=== PATIENT | male | born 1960 | race American Indian/Alaskan Native ===

== ENCOUNTER 2018-06-26 21:31 | Emergency (ER) | payer MEDICARE ==
[2018-06-26 22:29] LABS: Hemoglobin 11.1 gm/dl (11.8-15.2); Mean Corpuscular HGB Conc 33 % (32-34); Mean Corpuscular Hemoglobin 31 pg (28-32); Mean Corpuscular Volume 94 fl (84-94); Platelet Count 226 K/mm3 (140-440); Red Blood Count 3.63 M/mm3 (3.65-5.03); Red Cell Distribution Width 15.6 % (13.2-15.2)
[2018-06-26 22:42] LABS: BUN/Creatinine Ratio 16; Blood Urea Nitrogen 18 mg/dL (9-20); Calcium 8.5 mg/dL (8.4-10.2); Hemolysis Index 2
[2018-06-27 03:04] VITALS: BP 130/64
[2018-06-27] MEDS ORDERED: KEFLEX PO ONE ×2 (04:03→05:58)
--- NOTE | 2018-06-27 05:57 | Emergency Department Report ---
- General Chief Complaint: Wound/Laceration Stated Complaint: LT FOOT PAIN Time Seen by Provider: 06/27/18 04:03 Source: EMS Mode of arrival: Wheelchair Limitations: No Limitations - History of Present Illness Initial Comments: Pt has had nontraumatic left foot pain for the past couple of days. He has a wound on his foot that he would like to get checked out. - Related Data Previous Rx's Medication Instructions Recorded Last Taken Type cephALEXin [Keflex] 500 mg PO Q8HR #15 cap 06/27/18 Unknown Rx Allergies Allergy/AdvReac Type Severity Reaction Status Date / Time No Known Allergies Allergy Unverified 12/21/16 08:04 ED Review of Systems ROS: Stated complaint: LT FOOT PAIN Other details as noted in HPI Comment: All other systems reviewed and negative Musculoskeletal: arthralgia, myalgia ED Past Medical Hx - Past Medical History Hx Psychiatric Treatment: Yes (SCHIZO-EFFECTIVE) - Surgical History Past Surgical History?: No - Social History Smoking Status: Current Every Day Smoker Substance Use Type: None - Medications Home Medications: Home Medications Medication Instructions Recorded Confirmed Last Taken Type cephALEXin [Keflex] 500 mg PO Q8HR #15 cap 06/27/18 Unknown Rx ED Physical Exam - General Limitations: No Limitations General appearance: alert, in no apparent distress - Head Head exam: Present: atraumatic, normocephalic - Eye Eye exam: Present: normal appearance - ENT ENT exam: Present: mucous membranes moist - Neck Neck exam: Present: normal inspection - Respiratory Respiratory exam: Present: normal lung sounds bilaterally. Absent: respiratory distress - Cardiovascular Cardiovascular Exam: Present: regular rate, normal rhythm. Absent: systolic murmur, diastolic murmur, rubs, gallop - GI/Abdominal GI/Abdominal exam: Present: soft, normal bowel sounds. Absent: distended, tenderness - Rectal Rectal exam: Present: deferred - Extremities Exam Extremities exam: Present: normal inspection - Expanded Lower Extremity Exam Left Foot/Toe exam: Present: tenderness (4 cm linear superficial avulsion to the inner posterior portion of left foot. Mild erythema/swelling appreciated. Granulation tissue appreciated. ) Neuro vascular tendon exam: Present: no vascular compromise - Back Exam Back exam: Present: normal inspection - Neurological Exam Neurological exam: Present: alert, oriented X3 - Psychiatric Psychiatric exam: Present: normal affect, normal mood - Skin Skin exam: Present: warm, dry, intact, normal color. Absent: rash ED Course Vital Signs 06/26/18 06/27/18 22:09 03:03 Temperature 98.9 F Pulse Rate 65 64 Respiratory 18 16 Rate Blood Pressure 111/75 Blood Pressure 130/64 [Left] O2 Sat by Pulse 98 97 Oximetry ED Medical Decision Making - Lab Data Result diagrams: 06/26/18 22:16 06/26/18 22:16 - Medical Decision Making 57-year-old male that presents to the ER with left foot pain. Vital signs are stable. Patient is well-appearing. He has not medical foot pain. Wound appears to be unremarkable. Granulation tissue is seen. I will prescribe antibiotics as a precaution. No indication for imaging at this point in time. Patient ambulated in the ER without any difficulty. He is cleared for discharge. Has been given instructions on wound care. - Differential Diagnosis cellulitis, abscess, osteomyelitis, laceration Critical care attestation.: If time is entered above; I have spent that time in minutes in the direct care of this critically ill patient, excluding procedure time. ED Disposition Clinical Impression: Visit for wound check, Cellulitis Disposition: DC-01 TO HOME OR SELFCARE Is pt being admited?: No Does the pt Need Aspirin: No Condition: Stable Instructions: Cellulitis (ED), Acute Wound Care (ED) Prescriptions: cephALEXin [Keflex] 500 mg PO Q8HR #15 cap Referrals: PRIMARY CARE, [Primary Care Provider] - 3-5 Days [facility] [Outside] - 3-5 Days
== END 2018-06-27 06:14 | disposition home or self-care (01) ==
LOC: ED 21:31
DX: L03.116 Cellulitis of left lower limb (principal); F17.200 Nicotine dependence, unspecified, uncomplicated; F25.9 Schizoaffective disorder, unspecified
CPT/HCPCS: 36415; 80048; 85027; 99283

== ENCOUNTER 2018-07-04 09:35 | Emergency (ER) | payer MEDICARE ==
[2018-07-04 09:57] VITALS: BP 126/81
--- NOTE | 2018-07-04 12:21 | Emergency Department Report ---
ED Male HPI - General Chief complaint: Urogenital-Male Stated complaint: CANT URINATE Time Seen by Provider: 07/04/18 12:04 Source: patient Mode of arrival: Ambulatory Limitations: No Limitations - History of Present Illness Initial comments: 58-year-old male with a past medical history of schizoaffective disorder presents to the hospital complaining of chronic difficulty urinating for several years that has been progressively worsening for several months. Patient also complains of infrequent hard stools. Dysuria reported. He denies scrotal edema, nausea, vomiting, or fever. Pt was here 06/27 with complaint of nontraumatic left foot pain - Related Data Previous Rx's Medication Instructions Recorded Last Taken Type cephALEXin [Keflex] 500 mg PO Q8HR #15 cap 06/27/18 Unknown Rx Docusate Sodium [Colace] 100 mg PO BID PRN #20 capsule 07/04/18 Unknown Rx Polyethylene Glycol 3350 [Miralax 17 gm PO QDAY PRN #7 packet 07/04/18 Unknown Rx 3350] Tamsulosin [Flomax] 0.4 mg PO QDAY #30 cap 07/04/18 Unknown Rx Allergies Allergy/AdvReac Type Severity Reaction Status Date / Time No Known Allergies Allergy Verified 07/04/18 09:54 ED Review of Systems ROS: Stated complaint: CANT URINATE Other details as noted in HPI Comment: All other systems reviewed and negative ED Past Medical Hx - Past Medical History Hx Psychiatric Treatment: Yes (SCHIZO-EFFECTIVE) - Surgical History Past Surgical History?: No - Social History Smoking Status: Current Every Day Smoker Substance Use Type: None - Medications Home Medications: Home Medications Medication Instructions Recorded Confirmed Last Taken Type cephALEXin [Keflex] 500 mg PO Q8HR #15 cap 06/27/18 Unknown Rx Docusate Sodium [Colace] 100 mg PO BID PRN #20 capsule 07/04/18 Unknown Rx Polyethylene Glycol 3350 [Miralax 17 gm PO QDAY PRN #7 packet 07/04/18 Unknown Rx 3350] Tamsulosin [Flomax] 0.4 mg PO QDAY #30 cap 07/04/18 Unknown Rx ED Physical Exam - General Limitations: No Limitations - Other Other exam information: General: No limitations, patient is alert in no acute distress Head exam: Atraumatic, normocephalic Eyes exam: Normal appearance ENT: Moist mucous membrane, normal oropharynx Neck exam: Normal inspection, full range of motion, no meningismus nontender Respiratory exam: Clear to auscultation bilateral, no wheezes, rales, crackles Cardiovascular: Normal rate and rhythm, normal heart sounds Abdomen: Soft, nondistended, and nontender, with normal bowel sounds, no rebound, or guarding Extremity: Full range of motion normal inspection no deformity Back: Normal Inspection, full range of motion, no tenderness Neurologic: Alert, oriented x3, cranial nerves intact, no motor or sensory deficit Psychiatric: normal affect, normal mood Skin: Warm, dry, intact ED Course Vital Signs 07/04/18 09:54 Temperature 97.4 F L Pulse Rate 70 Respiratory 16 Rate Blood Pressure 126/81 O2 Sat by Pulse 100 Oximetry ED Medical Decision Making - Lab Data Lab Results 07/04/18 Range/Units 12:31 Urine Color Yellow (Yellow) Urine Turbidity Clear (Clear) Urine pH 6.0 (5.0-7.0) Ur Specific [place] 1.014 (1.003-1.030) Urine Protein <15 mg/dl (Negative) mg/dL Urine Glucose (UA) Neg (Negative) mg/dL Urine Ketones Neg (Negative) mg/dL Urine Blood Sm (Negative) Urine Nitrite Neg (Negative) Urine Bilirubin Neg (Negative) Urine Urobilinogen < 2.0 (<2.0) mg/dL Ur Leukocyte Esterase Neg (Negative) Urine WBC (Auto) 1.0 (0.0-6.0) /HPF Urine RBC (Auto) 4.0 (0.0-6.0) /HPF U Epithel Cells (Auto) < 1.0 (0-13.0) /HPF Urine Bacteria (Auto) Not Reportable Urine Mucus Few /HPF - Medical Decision Making Patient be empirically treated with Flomax for presumed BPH given progressively worsening difficulty urinating or straining Medications for constipation will be prescribed I stressed the importance of follow-up for further workup and evaluation ua does not review infection Recently as 06/26/2018 reviewed and revealed normal kidney function - Differential Diagnosis BPH, prostate cancer, constipation, UTI Critical Care Time: No Critical care attestation.: If time is entered above; I have spent that time in minutes in the direct care of this critically ill patient, excluding procedure time. ED Disposition Clinical Impression: Difficulty urinating, Constipation Disposition: DC-01 TO HOME OR SELFCARE Is pt being admited?: No Does the pt Need Aspirin: No Condition: Stable Instructions: Urinary Retention in Men (ED), Constipation (ED) Additional Instructions: Take the medication as prescribed. Follow up with your doctor. Return if symptoms worsen as indicated by your discharge instructions. It is very important that you follow up for evaluation of your prostate given your difficulty urinating. Prescriptions: Docusate Sodium [Colace] 100 mg PO BID PRN #20 capsule PRN Reason: Constipation Polyethylene Glycol 3350 [Miralax 3350] 17 gm PO QDAY PRN #7 packet PRN Reason: Constipation Tamsulosin [Flomax] 0.4 mg PO QDAY #30 cap Referrals: REUBEN MCCOLLUM MD [Staff Physician] - 3-5 Days (urology ) JAVI WADE MD [Staff Physician] - 3-5 Days (Primary care doctor) [facility] [Provider Group] - 3-5 Days (Primary care clinic) Time of Disposition: 13:23
[2018-07-04 12:45] LABS: Bilirubin,Urine NEG (Negative); Blood,Urine SM (Negative); Color,Urine Yellow (Yellow); Mucus,Urine FEW /HPF; Protein,Urine <15 mg/dL mg/dL (Negative); Urobilinogen,Urine < 2.0 mg/dL (<2.0)
== END 2018-07-04 13:51 | disposition home or self-care (01) ==
LOC: ED 09:35
DX: K59.00 Constipation, unspecified (principal); R39.198 Other difficulties with micturition; R30.0 Dysuria; M79.672 Pain in left foot; F17.200 Nicotine dependence, unspecified, uncomplicated
CPT/HCPCS: 81001; 99283

== ENCOUNTER 2018-07-08 09:30 | Emergency (ER) | payer MEDICARE ==
[2018-07-08] MEDS ORDERED: NACL 0.9% 1000 ML 1,000 ML IV ONE (10:28)
[2018-07-08 10:42] LABS: Hematocrit 36.6 % (35.5-45.6); Hemoglobin 12.2 gm/dl (11.8-15.2); Mean Corpuscular HGB Conc 33 % (32-34); Mean Corpuscular Hemoglobin 31 pg (28-32); Mean Corpuscular Volume 94 fl (84-94); Platelet Count 276 K/mm3 (140-440); Red Blood Count 3.89 M/mm3 (3.65-5.03); Red Cell Distribution Width 16.2 % (13.2-15.2)
--- NOTE | 2018-07-08 10:48 | Emergency Department Report ---
ED General Adult HPI - General Chief complaint: Abdominal Pain Stated complaint: GROWING PAIN Time Seen by Provider: 07/08/18 10:41 Source: patient Mode of arrival: Ambulatory Limitations: No Limitations - History of Present Illness Initial comments: Ramirez medrano is a 58-year-old male past medical history of BPH and difficulty urinating who presents with lower abdominal pain. He states pain is about a 5 out of 10 and it's an achy type of pain in lower abdomen. Patient denies any nausea or vomiting. He was seen here 4 days ago for the same issue. He recently moved to a personal assisted and does not have a primary care doctor. Patient keeps on requesting for pain pill. Patient was in no distress. Patient denies having any blood in his urine and states that he's been having hard stools but he has not filled any of his medications since his last visit. - Related Data Previous Rx's Medication Instructions Recorded Last Taken Type cephALEXin [Keflex] 500 mg PO Q8HR #15 cap 06/27/18 Unknown Rx Docusate Sodium [Colace] 100 mg PO BID PRN #20 capsule 07/04/18 Unknown Rx Polyethylene Glycol 3350 [Miralax 17 gm PO QDAY PRN #7 packet 07/04/18 Unknown Rx 3350] Tamsulosin [Flomax] 0.4 mg PO QDAY #30 cap 07/04/18 Unknown Rx Tamsulosin HCl [Flomax] 0.4 mg PO DAILY #30 cap.er.24h 07/08/18 Unknown Rx Allergies Allergy/AdvReac Type Severity Reaction Status Date / Time No Known Allergies Allergy Verified 07/04/18 09:54 ED Review of Systems ROS: Stated complaint: GROWING PAIN Other details as noted in HPI Constitutional: denies: chills, fever Eyes: denies: eye pain, eye discharge, vision change ENT: denies: ear pain, throat pain Respiratory: denies: cough, shortness of breath, wheezing Cardiovascular: denies: chest pain, palpitations Endocrine: no symptoms reported Gastrointestinal: abdominal pain. denies: nausea, diarrhea Genitourinary: denies: urgency, dysuria Musculoskeletal: denies: back pain, joint swelling, arthralgia Skin: denies: rash, lesions Neurological: denies: headache, weakness, paresthesias Psychiatric: denies: anxiety, depression Hematological/Lymphatic: denies: easy bleeding, easy bruising ED Past Medical Hx - Past Medical History Previous Medical History?: Yes Hx Psychiatric Treatment: Yes (SCHIZO-EFFECTIVE) - Surgical History Past Surgical History?: No - Social History Smoking Status: Current Every Day Smoker Substance Use Type: None - Medications Home Medications: Home Medications Medication Instructions Recorded Confirmed Last Taken Type cephALEXin [Keflex] 500 mg PO Q8HR #15 cap 06/27/18 Unknown Rx Docusate Sodium [Colace] 100 mg PO BID PRN #20 capsule 07/04/18 Unknown Rx Polyethylene Glycol 3350 [Miralax 17 gm PO QDAY PRN #7 packet 07/04/18 Unknown Rx 3350] Tamsulosin [Flomax] 0.4 mg PO QDAY #30 cap 07/04/18 Unknown Rx Tamsulosin HCl [Flomax] 0.4 mg PO DAILY #30 cap.er.24h 07/08/18 Unknown Rx ED Physical Exam - General Limitations: No Limitations General appearance: alert, in no apparent distress - Head Head exam: Present: atraumatic, normocephalic - Eye Eye exam: Present: normal appearance - ENT ENT exam: Present: mucous membranes moist - Neck Neck exam: Present: normal inspection - Respiratory Respiratory exam: Present: normal lung sounds bilaterally. Absent: respiratory distress - Cardiovascular Cardiovascular Exam: Present: regular rate, normal rhythm. Absent: systolic murmur, diastolic murmur, rubs, gallop - GI/Abdominal GI/Abdominal exam: Present: soft, normal bowel sounds - Rectal Rectal exam: Present: deferred - Extremities Exam Extremities exam: Present: normal inspection - Back Exam Back exam: Present: normal inspection - Neurological Exam Neurological exam: Present: alert, oriented X3 - Psychiatric Psychiatric exam: Present: normal affect, normal mood - Skin Skin exam: Present: warm, dry, intact, normal color. Absent: rash ED Course Vital Signs 07/08/18 10:24 Temperature 97.7 F Pulse Rate 65 Respiratory 22 Rate Blood Pressure 148/86 O2 Sat by Pulse 100 Oximetry ED Medical Decision Making - Lab Data Result diagrams: 07/08/18 10:31 07/08/18 10:31 Lab Results 07/08/18 07/08/18 07/08/18 Range/Units 10:31 10:31 Unknown WBC 6.0 (4.5-11.0) K/mm3 RBC 3.89 (3.65-5.03) M/mm3 Hgb 12.2 (11.8-15.2) gm/dl Hct 36.6 (35.5-45.6) % MCV 94 (84-94) fl MCH 31 (28-32) pg MCHC 33 (32-34) % RDW 16.2 H (13.2-15.2) % Plt Count 276 (140-440) K/mm3 Sodium 141 (137-145) mmol/L Potassium 4.3 (3.6-5.0) mmol/L Chloride 105.0 (98-107) mmol/L Carbon Dioxide 24 (22-30) mmol/L Anion Gap 16 mmol/L BUN 11 (9-20) mg/dL Creatinine 0.9 (0.8-1.5) mg/dL Estimated GFR > 60 ml/min BUN/Creatinine Ratio 12 % Glucose 98 (75-100) mg/dL Calcium 9.4 (8.4-10.2) mg/dL Total Bilirubin 1.10 (0.1-1.2) mg/dL AST 15 (5-40) units/L ALT 8 (7-56) units/L Alkaline Phosphatase 59 (35-129) units/L Total Protein 7.3 (6.3-8.2) g/dL Albumin 4.2 (3.9-5) g/dL Albumin/Globulin Ratio 1.4 % Urine Color Yellow (Yellow) Urine Turbidity Clear (Clear) Urine pH 6.0 (5.0-7.0) Ur Specific [place] 1.015 (1.003-1.030) Urine Protein <15 mg/dl (Negative) mg/dL Urine Glucose (UA) Neg (Negative) mg/dL Urine Ketones Neg (Negative) mg/dL Urine Blood Sm (Negative) Urine Nitrite Neg (Negative) Urine Bilirubin Neg (Negative) Urine Urobilinogen < 2.0 (<2.0) mg/dL Ur Leukocyte Esterase Neg (Negative) Urine WBC (Auto) 2.0 (0.0-6.0) /HPF Urine RBC (Auto) 2.0 (0.0-6.0) /HPF U Epithel Cells (Auto) < 1.0 (0-13.0) /HPF Urine Bacteria (Auto) 1+ (Negative) /HPF Urine Mucus Few /HPF - Medical Decision Making Cdx: UTI ddx: BPH, Constipation I will get cbc, ua, flomax and I will re-evaluate the patient. Patient's blood work is unremarkable. Patient states urine shows no signs of urinary tract infection. He is refusing Ball leg bag. I will send patient home with Flomax and follow up with Dr. Almanzar urologist. Discussed plan patient, patient agrees a plan additional verbal discharge instructions were given. Critical care attestation.: If time is entered above; I have spent that time in minutes in the direct care of this critically ill patient, excluding procedure time. ED Disposition Clinical Impression: Lower abdominal pain BPH (benign prostatic hyperplasia) Qualifiers: Lower urinary tract symptom presence: symptoms present Lower urinary tract symptom detail: weak urinary stream Qualified Code(s): N40.1 - Benign prostatic hyperplasia with lower urinary tract symptoms; R39.12 - Poor urinary stream Disposition: DC- TO HOME OR SELFCARE Is pt being admited?: No Does the pt Need Aspirin: No Condition: Stable Instructions: Benign Prostatic Hypertrophy (ED) Prescriptions: Tamsulosin HCl [Flomax] 0.4 mg PO DAILY #30 cap.er.24h Referrals: PRIMARY CAREMD [Primary Care Provider] - 3-5 Days OZZIE ALMANZAR MD [Referring] - 3-5 Days
[2018-07-08 11:03] LABS: Alanine Aminotransferase 8 units/L (7-56); Albumin 4.2 g/dL (3.9-5); BUN/Creatinine Ratio 12; Blood Urea Nitrogen 11 mg/dL (9-20); Calcium 9.4 mg/dL (8.4-10.2); Hemolysis Index 13
[2018-07-08] MEDS ORDERED: PERCOCET 5/325 PO ONE (11:04)
[2018-07-08] MEDS ORDERED: COLACE PO ONE (11:05)
[2018-07-08 11:34] LABS: Bacteria,Urine 1+ /HPF (Negative); Bilirubin,Urine NEG (Negative); Blood,Urine SM (Negative); Color,Urine Yellow (Yellow); Mucus,Urine FEW /HPF; Protein,Urine <15 mg/dL mg/dL (Negative); Urobilinogen,Urine < 2.0 mg/dL (<2.0)
[2018-07-08] MEDS ORDERED: FLOMAX PO ONE (12:00)
[2018-07-08 12:20] VITALS: BP 146/96
[2018-07-08 13:26] LABS: Anisocytosis 2+; Basophils % (Manual) 0 % (0.0-1.8); Poikilocytosis 3+; Total Cells Counted 100
[2018-07-08 13:27] LABS: Ovalocytes 3+
[2018-07-08 13:28] LABS: Tear Drop Cells Few
[2018-07-08 13:31] LABS: Platelet Estimate Consistent w Auto
== END 2018-07-08 12:18 | disposition home or self-care (01) ==
LOC: ED 09:30
DX: N40.1 Benign prostatic hyperplasia with lower urinary tract symptoms (principal); R39.12 Poor urinary stream
CPT/HCPCS: 36415; 80053; 81001; 85007; 85025; 99283; J7030

== ENCOUNTER 2018-08-07 16:13 | Inpatient (IN) | payer MEDICARE ==
[2018-08-07] MEDS ORDERED: NACL 0.9% 1000 ML 1,000 ML IV ONE (18:25)
[2018-08-07 19:11] LABS: Hematocrit 38.5 % (35.5-45.6); Hemoglobin 13.2 gm/dl (11.8-15.2); Mean Corpuscular HGB Conc 34 % (32-34); Mean Corpuscular Hemoglobin 31 pg (28-32); Mean Corpuscular Volume 89 fl (84-94); Red Blood Count 4.34 M/mm3 (3.65-5.03); Red Cell Distribution Width 15.7 % (13.2-15.2)
[2018-08-07 19:23] LABS: Platelet Count 293 K/mm3 (140-440)
[2018-08-07 19:26] LABS: Albumin 5.4 g/dL (3.9-5); Calcium 10.9 mg/dL (8.4-10.2)
[2018-08-07 20:23] LABS: Band Neutrophils # (Manual) 0.1 K/mm3; Basophils % (Manual) 0 % (0.0-1.8); Eosinophils % (Manual) 0 % (0.0-4.3); Myelocytes # (Manual) 0.1 K/mm3; Total Cells Counted 100
[2018-08-07 20:38] LABS: Hypersegmented Neutrophils Few; Platelet Estimate Consistent w Auto
[2018-08-07 20:39] LABS: Anisocytosis 2+; Ovalocytes 2+; Poikilocytosis 3+
[2018-08-07] MEDS ORDERED: HumuLIN R IV ONE (21:04)
[2018-08-07] MEDS ORDERED: D50W (25GM) Syringe IV ONE (21:04)
[2018-08-07] MEDS ORDERED: KIONEX PO ONE (21:04)
[2018-08-07] MEDS ORDERED: PROVENTIL IH ONE (21:05)
--- NOTE | 2018-08-07 21:20 | Emergency Department Report ---
HPI - General Chief Complaint: Abdominal Pain Time Seen by Provider: 08/07/18 20:47 - HPI HPI: 58-year-old male presents to the emergency department with complaint of some chronic lower abdominal pain as well as some intermittent nausea, vomiting and diarrhea. Patient complains of difficulty with urination. The patient has a history of BPH. He was seen here at the end of last month for similar symptoms and was placed on some Flomax. The patient wears a diaper. He is making urine but sometimes he is incontinent at other times he is able to get to a restroom. He does not have a primary care physician. The patient says that he used to be homeless but is currently living in a personal half-way. No recent travel or sick contacts at home. He denies any fever, chest pain, shortness of breath. ED Past Medical Hx - Past Medical History Hx Psychiatric Treatment: Yes (SCHIZO-EFFECTIVE) Additional medical history: BPH - Surgical History Past Surgical History?: No - Social History Smoking Status: Current Every Day Smoker Substance Use Type: None - Medications Home Medications: Home Medications Medication Instructions Recorded Confirmed Last Taken Type cephALEXin [Keflex] 500 mg PO Q8HR #15 cap 06/27/18 Unknown Rx Docusate Sodium [Colace] 100 mg PO BID PRN #20 capsule 07/04/18 Unknown Rx Polyethylene Glycol 3350 [Miralax 17 gm PO QDAY PRN #7 packet 07/04/18 Unknown Rx 3350] Tamsulosin [Flomax] 0.4 mg PO QDAY #30 cap 07/04/18 Unknown Rx Tamsulosin HCl [Flomax] 0.4 mg PO DAILY #30 cap.er.24h 07/08/18 Unknown Rx ED Review of Systems ROS: Stated complaint: STOMACH PAIN Other details as noted in HPI Comment: All other systems reviewed and negative Constitutional: denies: chills, fever Eyes: denies: eye pain, eye discharge, vision change ENT: denies: ear pain, throat pain Respiratory: denies: cough, shortness of breath, wheezing Cardiovascular: denies: chest pain, palpitations Gastrointestinal: abdominal pain, nausea, vomiting Genitourinary: other (difficulty urinating). denies: discharge Musculoskeletal: denies: joint swelling, arthralgia Skin: denies: rash, lesions Neurological: denies: headache, weakness, paresthesias Physical Exam - Physical Exam Vital Signs: Vital Signs 08/07/18 18:20 Temperature 98.0 F Pulse Rate 59 L Respiratory 20 Rate Blood Pressure 138/102 O2 Sat by Pulse 98 Oximetry Physical Exam: GENERAL: The patient is well-developed well-nourished. HENT: Normocephalic. Atraumatic. Patient has moist mucous membranes. EYES: Extraocular motions are intact. Pupils equal reactive to light bilaterally. NECK: Supple. Trachea is midline. CHEST/LUNGS: Clear to auscultation. There is no respiratory distress noted. HEART/CARDIOVASCULAR: Regular. There is mild tachycardia. There is no murmur. ABDOMEN: Abdomen is soft. There is some lower abdominal and or suprapubic tenderness to palpation. Patient has normal bowel sounds. SKIN: Skin is warm and dry. NEURO: The patient is awake, alert, and oriented. The patient is cooperative. The patient has no focal neurologic deficits. The patient has normal speech. MUSCULOSKELETAL: There is no tenderness or deformity. There is no evidence of acute injury. ED Course Vital Signs 08/07/18 18:20 Temperature 98.0 F Pulse Rate 59 L Respiratory 20 Rate Blood Pressure 138/102 O2 Sat by Pulse 98 Oximetry - Consultations Consultation #1: 08/08/18 05:23 I spoke with the insulating machine operator on-call, Dr. Laguerre, who will see the patient as a consult and agrees with the hyperkalemia cocktail but has asked for a Ball catheter to be placed ED Medical Decision Making - Lab Data Result diagrams: 08/07/18 18:49 08/07/18 18:49 - EKG Data -: EKG Interpreted by Or EKG shows normal: sinus rhythm, axis (left axis deviation), intervals, QRS complexes (LVH, left anterior fascicular block), ST-T waves Rate: tachycardia (114 beats per minute) - EKG Data When compared to previous EKG there are: previous EKG unavailable Interpretation: other (sinus tachycardia, left axis deviation, LVH, left anterior fascicular block) - Radiology Data Radiology results: report reviewed PROCEDURE: CT ABDOMEN PELVIS WO CON TECHNIQUE: Computerized axial tomography of the abdomen and pelvis was performed without intravenous contrast. This study is performed without intravascular contrast material and its sensitivity for abdominal and pelvic pathology, including neoplasms, inflammation, abscess, free fluid, thrombosis, arterial dissection and infarction, is reduced compared with a contrast enhanced study. HISTORY: abd pain COMPARISON: No prior studies are available for comparison. FINDINGS: Liver, spleen, and adrenal glands are within normal limits. Urinary bladder is grossly distended with normal outlines. Bilateral renal collecting systems are prominent. Bilateral ureters are also mildly prominent. There are no ureteral obstructive lesions or calculi. Moderate prostatomegaly is identified. Right kidney demonstrates a well-defined cystic lesion measuring 3 centimeters in diameter involving the midpole. Aorta is of normal caliber. There is no free fluid or free air. Gallbladder is unremarkable. Small bowel loops are within normal limits. Appendix is normal. Vertebral height is normal. A benign-appearing fat containing nodular lesion measuring 1.9 x 2.3 centimeters in the left pararectal region. It demonstrates irregular peripheral calcification. IMPRESSION: Moderate prostatomegaly with the distended urinary bladder and prominent bilateral collecting systems most likely represent bladder outlet obstruction. A benign-appearing fat containing lesion measuring 1.9 x 2.3 centimeters is noted in the left pararectal region.. Transcribed By: [facility] Dictated By: PATRICK HERNANDEZ Electronically Authenticated By: PATRICK HERNANDEZ Signed Date/Time: 08/07/18 4923 PROCEDURE: US RENAL BILAT TECHNIQUE: Real-time sonography in multiple planes of the kidneys, ureters and urinary bladder was performed with image documentation. CPT 61365 HISTORY: renal failure COMPARISON: No prior studies are available for comparison. FINDINGS: RIGHT kidney: Mild degree right hydronephrosis is noted without any calculi. A well-defined simple cyst measuring 2.1 x 2 point 2 x 2.8 centimeters is noted in the midpole. Length: 11 x 5 x 4 cm. LEFT kidney: Mild degree left hydronephrosis is noted without any calculi.. Length: 12 x 5 x 4cm. Bladder: Grossly distended with normal outlines. Moderate degree prostatomegaly is identified with median lobe hypertrophy. IMPRESSION: Grossly distended urinary bladder with the mild degree bilateral hydronephrosis are consistent with bladder outlet obstruction secondary to prostate hypertrophy.. Transcribed By: [facility] Dictated By: PATRICK HERNANDEZ Electronically Authenticated By: PATRICK HERNANDEZ Signed Date/Time: 08/07/18 5824 - Medical Decision Making Patient presents with some difficulty with urination and lower abdominal discomfort. The patient was here last month and had relatively normal labs including a normal metabolic panel. Today the labs show acute renal failure with a BUN/creatinine greater than 100, creatinine of about 8 and a potassium level of 6.6. Patient was given calcium, albuterol, insulin, glucose and Kayexalate. A CT scan of the abdomen and pelvis without contrast and a renal ultrasound were done that show a grossly distended urinary bladder with some mild bilateral hydronephrosis and BPH that appear consistent with a bladder outlet obstruction. A Ball catheter was placed and the patient has put out a large amount of urine. No significant urinary tract infection. The patient will be admitted to the hospital for further evaluation, nephrology consultation and was accepted for admission by the hospitalist, Dr. Caicedo. - Differential Diagnosis UTI, pyelonephritis, bladder outlet obstruction, malignancy Critical Care Time: No Critical care attestation.: If time is entered above; I have spent that time in minutes in the direct care of this critically ill patient, excluding procedure time. ED Disposition Clinical Impression: Bladder outlet obstruction, Urinary retention, Hyperkalemia Acute renal failure Qualifiers: Acute renal failure type: unspecified Qualified Code(s): N17.9 - Acute kidney failure, unspecified Hypertension Qualifiers: Hypertension type: essential hypertension Qualified Code(s): I10 - Essential ( primary) hypertension Disposition: OP ADMIT IP TO THIS HOSP Is pt being admited?: Yes Condition: Serious Time of Disposition: 05:25
[2018-08-07] MEDS ORDERED: CALCIUM GLUCONATE 1,000 MG in NACL 0.9% 100 ML IV ONE (22:04)
--- NOTE | 2018-08-07 22:18 | Cat Scan Report ---
FINAL REPORT PROCEDURE: CT ABDOMEN PELVIS WO CON TECHNIQUE: Computerized axial tomography of the abdomen and pelvis was performed without intravenous contrast. This study is performed without intravascular contrast material and its sensitivity for abdominal and pelvic pathology, including neoplasms, inflammation, abscess, free fluid, thrombosis, arterial dissection and infarction, is reduced compared with a contrast enhanced study. HISTORY: abd pain COMPARISON: No prior studies are available for comparison. FINDINGS: Liver, spleen, and adrenal glands are within normal limits. Urinary bladder is grossly distended with normal outlines. Bilateral renal collecting systems are prominent. Bilateral ureters are also mildly prominent. There are no ureteral obstructive lesions or calculi. Moderate prostatomegaly is identified. Right kidney demonstrates a well-defined cystic lesion measuring 3 centimeters in diameter involving the midpole. Aorta is of normal caliber. There is no free fluid or free air. Gallbladder is unremarkable. Small bowel loops are within normal limits. Appendix is normal. Vertebral height is normal. A benign-appearing fat containing nodular lesion measuring 1.9 x 2.3 centimeters in the left pararectal region. It demonstrates irregular peripheral calcification. IMPRESSION: Moderate prostatomegaly with the distended urinary bladder and prominent bilateral collecting systems most likely represent bladder outlet obstruction. A benign-appearing fat containing lesion measuring 1.9 x 2.3 centimeters is noted in the left pararectal region..
--- NOTE | 2018-08-07 23:05 | Ultrasound Report ---
FINAL REPORT PROCEDURE: US RENAL BILAT TECHNIQUE: Real-time sonography in multiple planes of the kidneys, ureters and urinary bladder was performed with image documentation. CPT 62241 HISTORY: renal failure COMPARISON: No prior studies are available for comparison. FINDINGS: RIGHT kidney: Mild degree right hydronephrosis is noted without any calculi. A well-defined simple cyst measuring 2.1 x 2 point 2 x 2.8 centimeters is noted in the midpole. Length: 11 x 5 x 4 cm. LEFT kidney: Mild degree left hydronephrosis is noted without any calculi.. Length: 12 x 5 x 4cm. Bladder: Grossly distended with normal outlines. Moderate degree prostatomegaly is identified with median lobe hypertrophy. IMPRESSION: Grossly distended urinary bladder with the mild degree bilateral hydronephrosis are consistent with bladder outlet obstruction secondary to prostate hypertrophy..
[2018-08-07] MEDS ORDERED: XYLOCAINE 2% UROJET UR ONE (23:06)
[2018-08-08] MEDS ORDERED: KIONEX ONE ×2 (00:06→00:09)
[2018-08-08] MEDS ORDERED: D50W (25GM) Syringe IV ONE (00:06)
[2018-08-08] MEDS ORDERED: HumuLIN R ONE (00:08)
[2018-08-08] MEDS ORDERED: PROVENTIL IH ONE (01:38)
[2018-08-08 02:37] LABS: Bacteria,Urine 1+ /HPF (Negative); Bilirubin,Urine NEG (Negative); Blood,Urine LG (Negative); Color,Urine Yellow (Yellow); Urobilinogen,Urine < 2.0 mg/dL (<2.0)
[2018-08-08] MEDS ORDERED: TYLENOL PO PRN (02:56)
[2018-08-08] MEDS ORDERED: ZOFRAN IV PRN (02:56)
[2018-08-08] MEDS ORDERED: MIRALAX 3350 PO PRN (02:58)
[2018-08-08] MEDS ORDERED: COLACE PO PRN (02:58)
[2018-08-08] MEDS ORDERED: KEFLEX PO SCH (04:00)
[2018-08-08] MEDS ORDERED: MORPHINE ONE (04:06)
[2018-08-08] MEDS: MORPHINE IV PRN ×3 (04:12→22:22)
[2018-08-08] MEDS ORDERED: NACL 0.9% 500 ML 500 ML IV ONE (05:38)
[2018-08-08] MEDS ORDERED: NACL 0.9% 500 ML 500 ML ONE (05:43)
[2018-08-08] MEDS ORDERED: NACL 0.9% 1000 ML 1,000 ML IV SCH (06:00)
[2018-08-08] MEDS ORDERED: HEPARIN SUB-Q SCH (06:00)
[2018-08-08 07:25] LABS: Calcium 10.7 mg/dL (8.4-10.2)
--- NOTE | 2018-08-08 07:43 | History and Physical Report ---
CHIEF COMPLAINT: Lower abdominal pain. OTHER COMPLAINT: Includes difficulty with urination. HISTORY OF PRESENT ILLNESS: The patient is a 58-year-old male who has been having lower abdominal pain with intermittent nausea, vomiting, and diarrhea going on; also the patient has history of dysuria and the patient is known to have benign prostatic hypertrophy, and was seen here at the end of the last month for similar symptoms and was started on Flomax. The patient wears diaper because of occasional urinary incontinence. There is no history of fever, no history of chills. The patient stated that he used to be homeless, but currently lives in a Personal [facility]. There is no history of shortness of breath or chest pain. PAST MEDICAL HISTORY: Pertinent for schizoaffective disorder and benign prostatic hypertrophy. PAST SURGICAL HISTORY: Unremarkable. FAMILY HISTORY: Noncontributory. SOCIAL HISTORY: The patient lives at a Personal [facility], smokes cigarettes. Does not drink alcohol and does not use illicit drugs. MEDICATIONS: The patient is on Keflex 500 mg by mouth every 8 hours, Colace 100 mg by mouth twice daily, MiraLax 17 g by mouth daily as needed for constipation, Flomax 0.4 mg by mouth daily. ALLERGIES: There are no known drug allergies. REVIEW OF SYSTEMS: CONSTITUTIONAL: There is no fever, no chills, no diaphoresis. HEENT: There is no headache or sore throat. CARDIOVASCULAR SYSTEM: There is no chest pain or orthopnea. RESPIRATORY SYSTEM: There is no shortness of breath or cough. GASTROINTESTINAL SYSTEM: Abdominal pain present. Nausea and vomiting present. Diarrhea present. No constipation. NEUROLOGICAL SYSTEM: There is no numbness, no dizziness, no altered mental status. MUSCULOSKELETAL SYSTEM: There is no joint pain or swelling. DERMATOLOGICAL SYSTEM: There is no skin rash or itching. GENITOURINARY SYSTEM: There is no dysuria, hematuria or flank pain. Rest of system review is normal. PHYSICAL EXAMINATION: GENERAL: At the time of exam, the patient was found to be alert, oriented x 3, and not in acute distress. VITAL SIGNS: Shows temperature of 98 degrees Fahrenheit, pulse of 59, respiration 20, blood pressure 138/102, O2 sat of 98% on room air. HEENT: Exam Show pupils to be equal, round, reactive to light and accommodation. Extraocular muscles are intact. NECK: Supple with no JVD or carotid bruit. CARDIOVASCULAR SYSTEM: Show normal first and second heart sounds with no gallops or murmurs. RESPIRATORY SYSTEM: Show good air entry on both sides of the lung with no abnormal breath sounds. GASTROINTESTINAL SYSTEM: Show abdomen to be full, soft, and nontender with no rigidity or rebound tenderness. Bowel sound is normal. NEUROLOGIC SYSTEM: Show no focal deficit. MUSCULOSKELETAL SYSTEM: Show no joint swelling or tenderness. DERMATOLOGICAL SYSTEM: Show no skin rash. GENITOURINARY SYSTEM: Showing no costovertebral angle tenderness. The patient has a Ball catheter in place. PERTINENT LABORATORY AND IMAGING STUDIES: The patient had CT of the abdomen and pelvis without contrast done that shows moderate prostatomegaly with distended urinary bladder and prominent bilateral collecting system most likely representing bladder outlet obstruction. There is finding of a benign appearing fat containing lesion measuring 1.9 x 2.3 cm in the left pararectal region. Lab results, the patient has CBC done that shows normal white count, normal hemoglobin, and normal hematocrit, with elevated segmented neutrophil level of 89% in the CBC differential, also the patient's chemistry show elevated potassium level of 6.4, with high BUN level of 109 and high creatinine level of 8.7. The patient's rest of chemistry shows elevated total protein of 9.9 and elevated albumin level of 5.4. The patient's urinalysis came back unremarkable. DIAGNOSES: 1. Bladder outlet obstruction. 2. Hyperkalemia. 3. Renal insufficiency. CARE OF PLAN: 1. The fundus patient will be admitted to telemetry. 2. The patient will have basic metabolic panel done this morning. 3. The patient will continue Nephrology consult with Dr. Laguerre because of acute kidney failure and hyperkalemia. The patient will also continue Urology consult with Dr. Guerra as stated by the Emergency Room physician who said he discussed with the Urologist. 4. The patient will be on intravenous Zofran 4 mg every 8 hours for nausea and vomiting. 5. The patient will be on Tylenol 650 mg by mouth every 4 hours for fever and headache. 6. The patient will be on his home medication as shown in the medication reconciliation section and deep venous thrombosis prophylaxis will be through heparin 5000 units every 12 hours, sequential compressive device. The patient's diet will be regular diet. JOB# [id number] [facility]/GILDARDO JIMENEZ
--- NOTE | 2018-08-08 09:55 | Consultation ---
History of Present Illness - Reason for Consult Consult date: 08/08/18 acute renal failure, hyperkalemia, metabolic acidosis Requesting physician: KATIE HSU - History of Present Illness 58-year-old male presents to the emergency department with complaint of some chronic lower abdominal pain as well as some intermittent nausea, vomiting and diarrhea. Patient complains of difficulty with urination. The patient has a history of BPH. He was seen here at the end of last month for similar symptoms and was placed on some Flomax. The patient wears a diaper. He is making urine but sometimes he is incontinent at other times he is able to get to a restroom. He does not have a primary care physician. The patient says that he used to be homeless but is currently living in a personal half-way. No recent travel or sick contacts at home. He denies any fever, chest pain, shortness of breath. - Past Medical History Hx Psychiatric Treatment: Yes (SCHIZO-EFFECTIVE) Additional medical history: BPH - Surgical History Past Surgical History?: No - Social History Smoking Status: Current Every Day Smoker Substance Use Type: None ROS: Stated complaint: STOMACH PAIN Other details as noted in HPI Comment: All other systems reviewed and negative Constitutional: denies: chills, fever Eyes: denies: eye pain, eye discharge, vision change ENT: denies: ear pain, throat pain Respiratory: denies: cough, shortness of breath, wheezing Cardiovascular: denies: chest pain, palpitations Gastrointestinal: abdominal pain, nausea, vomiting Genitourinary: other (difficulty urinating). denies: discharge Musculoskeletal: denies: joint swelling, arthralgia Skin: denies: rash, lesions Neurological: denies: headache, weakness, paresthesias Radiology results: report reviewed PROCEDURE: CT ABDOMEN PELVIS WO CON TECHNIQUE: Computerized axial tomography of the abdomen and pelvis was performed without intravenous contrast. This study is performed without intravascular contrast material and its sensitivity for abdominal and pelvic pathology, including neoplasms, inflammation, abscess, free fluid, thrombosis, arterial dissection and infarction, is reduced compared with a contrast enhanced study. HISTORY: abd pain COMPARISON: No prior studies are available for comparison. FINDINGS: Liver, spleen, and adrenal glands are within normal limits. Urinary bladder is grossly distended with normal outlines. Bilateral renal collecting systems are prominent. Bilateral ureters are also mildly prominent. There are no ureteral obstructive lesions or calculi. Moderate prostatomegaly is identified. Right kidney demonstrates a well-defined cystic lesion measuring 3 centimeters in diameter involving the midpole. Aorta is of normal caliber. There is no free fluid or free air. Gallbladder is unremarkable. Small bowel loops are within normal limits. Appendix is normal. Vertebral height is normal. A benign-appearing fat containing nodular lesion measuring 1.9 x 2.3 centimeters in the left pararectal region. It demonstrates irregular peripheral calcification. IMPRESSION: Moderate prostatomegaly with the distended urinary bladder and prominent bilateral collecting systems most likely represent bladder outlet obstruction. A benign-appearing fat containing lesion measuring 1.9 x 2.3 centimeters is noted in the left pararectal region.. Medications and Allergies Allergies Allergy/AdvReac Type Severity Reaction Status Date / Time No Known Allergies Allergy Verified 07/04/18 09:54 Home Medications Medication Instructions Recorded Confirmed Last Taken Type Docusate Sodium [Colace] 100 mg PO BID PRN #20 capsule 07/04/18 08/08/18 Unknown Rx Polyethylene Glycol 3350 [Miralax 17 gm PO QDAY PRN #7 packet 07/04/18 08/08/18 Unknown Rx 3350] Tamsulosin [Flomax] 0.4 mg PO QDAY #30 cap 07/04/18 08/08/18 Unknown Rx Active Meds: Active Medications Acetaminophen (Tylenol) 650 mg PO Q4H PRN PRN Reason: Fever >101 Cephalexin (Keflex) 500 mg PO Q8HR [facility] Last Admin: 08/08/18 04:12 Dose: 500 mg Docusate Sodium (Colace) 100 mg PO BID PRN PRN Reason: Constipation Heparin Sodium (Porcine) (Heparin) 5,000 unit SUB-Q Q12HR [facility] Sodium Bicarbonate 150 meq/ (Dextrose) 1,150 mls @ 125 mls/hr IV DIRECT [facility] Morphine Sulfate (Morphine) 2 mg IV Q4H PRN PRN Reason: Pain, Moderate (4-6) Last Admin: 08/08/18 04:12 Dose: 2 mg Ondansetron HCl (Zofran) 4 mg IV Q8H PRN PRN Reason: Nausea And Vomiting Polyethylene Glycol (Miralax 3350) 17 gm PO QDAY PRN PRN Reason: Constipation Tamsulosin HCl (Flomax) 0.4 mg PO QDAY [facility] Exam - Vital Signs Vital signs: Vital Signs Temp Pulse Resp BP Pulse Ox 98.0 F 59 L 20 138/102 98 08/07/18 18:20 08/07/18 18:20 08/07/18 18:20 08/07/18 18:20 08/07/18 18:20 - Physical Exam Narrative exam: GENERAL: The patient is well-developed well-nourished. HENT: Normocephalic. Atraumatic. Patient has moist mucous membranes. EYES: Extraocular motions are intact. Pupils equal reactive to light bilaterally. NECK: Supple. Trachea is midline. CHEST/LUNGS: Clear to auscultation. There is no respiratory distress noted. HEART/CARDIOVASCULAR: Regular. There is mild tachycardia. There is no murmur. ABDOMEN: Abdomen is soft. There is some lower abdominal and or suprapubic tenderness to palpation. Patient has normal bowel sounds. SKIN: Skin is warm and dry. NEURO: The patient is awake, alert, and oriented. The patient is cooperative. The patient has no focal neurologic deficits. The patient has normal speech. MUSCULOSKELETAL: There is no tenderness or deformity. There is no evidence of acute injury. Results - Lab Results 08/07/18 18:49 08/08/18 06:22 Most recent lab results Calcium 10.7 mg/dL (8.4-10.2) H 08/08/18 06:22 Assessment and Plan IMpression: * REYNA * Bladder outlet obstruction * hyperkalemia * metabolic acidosis * HTN * BPH Plan: * K improved with medical treatment * strict i/os * daily lytes * agree with iv abx * rec urology consultation for bladder outlet obstruction * add bicarb grr * no indication for online content developer at this time * avoid nephrotoxins
[2018-08-08] MEDS: FLOMAX PO SCH (10:59)
[2018-08-08] MEDS: HEPARIN SUB-Q SCH ×2 (10:59→22:13)
--- NOTE | 2018-08-08 12:23 | Progress Note ---
Assessment and Plan Assessment and plan: --Abdominal pain; bladder outlet obstruction; Continue Ball catheterization, supportive care Urology consult, discuss with urologist --Urinary tract infection; antinuclear antibody antibiotics Follow cultures, IV fluids --Acute kidney injury; secondary to obstructive uropathy ATN, gentle hydration, closely monitor renal function, avoid nephrotoxins Nephrology following --Hyperkalemia; corrected, closely monitor electrolytes --Hypercalcemia; secondary to dehydration, continue IV fluids and closely monitor --Hypertension; moderate control, continue current antihypertensives and when necessary medications --Metabolic acidosis; on bicarbonate replacement Closely monitor --DVT prophylaxis; heparin renal dose Follow urology evaluation and recommendations Closely monitor the patient and just the management Possible discharge in 1-2 days if stable History Interval history: Patient seen and evaluated medical records reviewed Admitted with abdominal pain nausea vomiting diarrhea, urinary problems Initial evaluation consistent with acute kidney injury, bladder outlet obstruction Patient has continuous Ball catheter Feels slightly better, complaints of lower abdominal discomfort Vital signs reviewed Hospitalist Physical - Constitutional Vitals: Temp Pulse Resp BP Pulse Ox 97.7 F 99 H 20 144/102 99 08/08/18 06:50 08/08/18 06:50 08/08/18 11:07 08/08/18 06:50 08/08/18 06:50 General appearance: Present: no acute distress, well-nourished - EENT Eyes: Present: PERRL, EOM intact - Neck Neck: Present: supple, normal ROM - Respiratory Respiratory effort: normal Respiratory: bilateral: diminished, negative: rales, rhonchi, wheezing - Cardiovascular Rhythm: regular Heart Sounds: Present: S1 & S2 - Extremities Extremities: no ischemia, No edema - Abdominal General gastrointestinal: soft, non-tender, non-distended, normal bowel sounds - Integumentary Integumentary: Present: clear, warm - Psychiatric Psychiatric: appropriate mood/affect, cooperative - Neurologic Neurologic: moves all extremities Results - Labs CBC & Chem 7: 08/07/18 18:49 08/08/18 06:22 Labs: Laboratory Last Values WBC 6.7 K/mm3 (4.5-11.0) 08/07/18 18:49 RBC 4.34 M/mm3 (3.65-5.03) 08/07/18 18:49 Hgb 13.2 gm/dl (11.8-15.2) 08/07/18 18:49 Hct 38.5 % (35.5-45.6) 08/07/18 18:49 MCV 89 fl (84-94) 08/07/18 18:49 MCH 31 pg (28-32) 08/07/18 18:49 MCHC 34 % (32-34) 08/07/18 18:49 RDW 15.7 % (13.2-15.2) H 08/07/18 18:49 Plt Count 293 K/mm3 (140-440) 08/07/18 18:49 Add Manual Diff Complete 08/07/18 18:49 Total Counted 100 08/07/18 18:49 Seg Neuts % (Manual) 89.0 % (40.0-70.0) H 08/07/18 18:49 Band Neutrophils % 1.0 % 08/07/18 18:49 Lymphocytes % (Manual) 8.0 % (13.4-35.0) L 08/07/18 18:49 Reactive Lymphs % (Man) 0 % 08/07/18 18:49 Monocytes % (Manual) 1.0 % (0.0-7.3) 08/07/18 18:49 Eosinophils % (Manual) 0 % (0.0-4.3) 08/07/18 18:49 Basophils % (Manual) 0 % (0.0-1.8) 08/07/18 18:49 Metamyelocytes % 0 % 08/07/18 18:49 Myelocytes % 1.0 % 08/07/18 18:49 Promyelocytes % 0 % 08/07/18 18:49 Blast Cells % 0 % 08/07/18 18:49 Nucleated RBC % Not Reportable 08/07/18 18:49 Seg Neutrophils # Man 6.0 K/mm3 (1.8-7.7) 08/07/18 18:49 Band Neutrophils # 0.1 K/mm3 08/07/18 18:49 Lymphocytes # (Manual) 0.5 K/mm3 (1.2-5.4) L 18 18:49 Abs React Lymphs (Man) 0.0 K/mm3 08/07/18 18:49 Monocytes # (Manual) 0.1 K/mm3 (0.0-0.8) 08/07/18 18:49 Eosinophils # (Manual) 0.0 K/mm3 (0.0-0.4) 08/07/18 18:49 Basophils # (Manual) 0.0 K/mm3 (0.0-0.1) 08/07/18 18:49 Metamyelocytes # 0.0 K/mm3 08/07/18 18:49 Myelocytes # 0.1 K/mm3 08/07/18 18:49 Promyelocytes # 0.0 K/mm3 08/07/18 18:49 Blast Cells # 0.0 K/mm3 08/07/18 18:49 WBC Morphology Not Reportable 08/07/18 18:49 Hypersegmented Neuts Few 08/07/18 18:49 Hyposegmented Neuts Not Reportable 08/07/18 18:49 Hypogranular Neuts Not Reportable 08/07/18 18:49 Smudge Cells Not Reportable 08/07/18 18:49 Toxic Granulation Not Reportable 08/07/18 18:49 Toxic Vacuolation Not Reportable 08/07/18 18:49 Dohle Bodies Not Reportable 08/07/18 18:49 Pelger-Huet Anomaly Not Reportable 08/07/18 18:49 Yenny Rods Not Reportable 08/07/18 18:49 Platelet Estimate Consistent w auto 08/07/18 18:49 Clumped Platelets Not Reportable 08/07/18 18:49 Plt Clumps, EDTA Not Reportable 08/07/18 18:49 Large Platelets Not Reportable 08/07/18 18:49 Giant Platelets Not Reportable 08/07/18 18:49 Platelet Satelliting Not Reportable 08/07/18 18:49 Plt Morphology Comment Not Reportable 08/07/18 18:49 RBC Morphology Not Reportable 08/07/18 18:49 Dimorphic RBCs Not Reportable 08/07/18 18:49 Polychromasia Not Reportable 08/07/18 18:49 Hypochromasia Not Reportable 08/07/18 18:49 Poikilocytosis 3+ 08/07/18 18:49 Anisocytosis 2+ 08/07/18 18:49 Microcytosis Not Reportable 08/07/18 18:49 Macrocytosis Not Reportable 08/07/18 18:49 Spherocytes Not Reportable 08/07/18 18:49 Pappenheimer Bodies Not Reportable 08/07/18 18:49 Sickle Cells Not Reportable 08/07/18 18:49 Target Cells Not Reportable 08/07/18 18:49 Tear Drop Cells Not Reportable 08/07/18 18:49 Ovalocytes 2+ 08/07/18 18:49 Helmet Cells Not Reportable 08/07/18 18:49 Rodriguez-[place]cur[place] Bodies Not Reportable 08/07/18 18:49 [place] Rings Not Reportable 08/07/18 18:49 [place] Cells Not Reportable 08/07/18 18:49 Bite Cells Not Reportable 08/07/18 18:49 Crenated Cell Not Reportable 08/07/18 18:49 Elliptocytes 3+ 08/07/18 18:49 Acanthocytes (Spur) Not Reportable 08/07/18 18:49 Rouleaux Not Reportable 08/07/18 18:49 Hemoglobin C Crystals Not Reportable 08/07/18 18:49 Schistocytes Not Reportable 08/07/18 18:49 Malaria parasites Not Reportable 08/07/18 18:49 Kei Bodies Not Reportable 08/07/18 18:49 Hem Pathologist Commnt No 08/07/18 18:49 Sodium 143 mmol/L (137-145) 08/08/18 06:22 Potassium 4.9 mmol/L (3.6-5.0) D 08/08/18 06:22 Chloride 107.0 mmol/L (98-107) 08/08/18 06:22 Carbon Dioxide 14 mmol/L (22-30) L 08/08/18 06:22 Anion Gap 27 mmol/L 08/08/18 06:22 BUN 99 mg/dL (9-20) H 08/08/18 06:22 Creatinine 6.4 mg/dL (0.8-1.5) H 08/08/18 06:22 Estimated GFR 11 ml/min 08/08/18 06:22 BUN/Creatinine Ratio 15 % 08/08/18 06:22 Glucose 147 mg/dL (75-100) H 08/08/18 06:22 Calcium 10.7 mg/dL (8.4-10.2) H 08/08/18 06:22 Total Bilirubin 1.00 mg/dL (0.1-1.2) 09/25/18 18:49 AST 14 units/L (5-40) 08/07/18 18:49 ALT 5 units/L (7-56) L 08/07/18 18:49 Alkaline Phosphatase 57 units/L (35-129) 08/07/18 18:49 Total Protein 9.9 g/dL (6.3-8.2) H 08/07/18 18:49 Albumin 5.4 g/dL (3.9-5) H 08/07/18 18:49 Albumin/Globulin Ratio 1.2 % 08/07/18 18:49 Urine Color Yellow (Yellow) 08/08/18 01:28 Urine Turbidity Clear (Clear) 08/08/18 01:28 Urine pH 5.0 (5.0-7.0) 08/08/18 01:28 Ur Specific [place] 1.012 (1.003-1.030) 08/08/18 01:28 Urine Protein 30 mg/dl mg/dL (Negative) 08/08/18 01:28 Urine Glucose (UA) Neg mg/dL (Negative) 08/08/18 01:28 Urine Ketones Neg mg/dL (Negative) 08/08/18 01:28 Urine Blood Lg (Negative) 08/08/18 01:28 Urine Nitrite Neg (Negative) 08/08/18 01:28 Urine Bilirubin Neg (Negative) 08/08/18 01:28 Urine Urobilinogen < 2.0 mg/dL (<2.0) 08/08/18 01:28 Ur Leukocyte Esterase Neg (Negative) 08/08/18 01:28 Urine WBC (Auto) 5.0 /HPF (0.0-6.0) 08/08/18 01:28 Urine RBC (Auto) 96.0 /HPF (0.0-6.0) 08/08/18 01:28 Urine Bacteria (Auto) 1+ /HPF (Negative) 08/08/18 01:28
[2018-08-08] MEDS: SODIUM BICARBONATE 150 MEQ in D5W 1,000 ML IV SCH (14:29)
[2018-08-08] MEDS ORDERED: APRESOLINE PO PRN (16:03)
--- NOTE | 2018-08-08 16:28 | Consultation ---
History of Present Illness - Reason for Consult Consult date: 08/08/18 - History of Present Illness 58-year-old male presents to the emergency department with complaint of some chronic lower abdominal pain as well as some intermittent nausea, vomiting and diarrhea. Patient complains of difficulty with urination. The patient has a history of BPH. He was seen here at the end of last month for similar symptoms and was placed on some Flomax. The patient wears a diaper. He is making urine but sometimes he is incontinent at other times he is able to get to a restroom. He does not have a primary care physician. The patient says that he used to be homeless but is currently living in a personal detention. No recent travel or sick contacts at home. He denies any fever, chest pain, shortness of breath. - Past Medical History Hx Psychiatric Treatment: Yes (SCHIZO-EFFECTIVE) Additional medical history: BPH CTAP---BPH HUTCHINSON DRAINING WELL A/P BPH RENAL INSUFF NEEDS OUTPT URODYNAMICS CONTINUE FLOMAX HOME WITH HUTCHINSON WHEN STABLE Medications and Allergies Allergies Allergy/AdvReac Type Severity Reaction Status Date / Time No Known Allergies Allergy Verified 07/04/18 09:54 Home Medications Medication Instructions Recorded Confirmed Last Taken Type Docusate Sodium [Colace] 100 mg PO BID PRN #20 capsule 07/04/18 08/08/18 Unknown Rx Polyethylene Glycol 3350 [Miralax 17 gm PO QDAY PRN #7 packet 07/04/18 08/08/18 Unknown Rx 3350] Tamsulosin [Flomax] 0.4 mg PO QDAY #30 cap 07/04/18 08/08/18 Unknown Rx Active Meds: Active Medications Acetaminophen (Tylenol) 650 mg PO Q4H PRN PRN Reason: Fever >101 Cephalexin (Keflex) 250 mg PO BID OC Docusate Sodium (Colace) 100 mg PO BID PRN PRN Reason: Constipation Heparin Sodium (Porcine) (Heparin) 5,000 unit SUB-Q Q12HR OC Last Admin: 08/08/18 10:59 Dose: 5,000 unit Hydralazine HCl (Apresoline) 10 mg PO Q4H PRN PRN Reason: for BP>155/90 Sodium Bicarbonate 150 meq/ (Dextrose) 1,150 mls @ 125 mls/hr IV DIRECT [facility] Last Admin: 08/08/18 14:29 Dose: 125 mls/hr Morphine Sulfate (Morphine) 2 mg IV Q4H PRN PRN Reason: Pain, Moderate (4-6) Last Admin: 08/08/18 11:07 Dose: 2 mg Ondansetron HCl (Zofran) 4 mg IV Q8H PRN PRN Reason: Nausea And Vomiting Polyethylene Glycol (Miralax 3350) 17 gm PO QDAY PRN PRN Reason: Constipation Tamsulosin HCl (Flomax) 0.4 mg PO QDAY [facility] Last Admin: 08/08/18 10:59 Dose: 0.4 mg Exam - Constitutional Vitals: Temp Pulse Resp BP Pulse Ox 98.3 F 102 H 16 145/105 100 08/08/18 13:24 08/08/18 13:24 08/08/18 13:24 08/08/18 13:24 08/08/18 13:24 Results - Labs CBC & Chem 7: 08/07/18 18:49 08/08/18 06:22 Labs: Abnormal lab results 08/07/18 08/07/18 08/08/18 Range/Units 18:49 18:49 06:22 RDW 15.7 H (13.2-15.2) % Seg Neuts % (Manual) 89.0 H (40.0-70.0) % Lymphocytes % (Manual) 8.0 L (13.4-35.0) % Lymphocytes # (Manual) 0.5 L (1.2-5.4) K/mm3 Potassium 6.4 H* (3.6-5.0) mmol/L Carbon Dioxide 15 L 14 L (22-30) mmol/L BUN 109 H 99 H (9-20) mg/dL Creatinine 8.7 H 6.4 H (0.8-1.5) mg/dL Glucose 167 H 147 H (75-100) mg/dL Calcium 10.9 H 10.7 H (8.4-10.2) mg/dL ALT 5 L (7-56) units/L Total Protein 9.9 H (6.3-8.2) g/dL Albumin 5.4 H (3.9-5) g/dL
[2018-08-08] MEDS: KEFLEX PO SCH (22:12)
[2018-08-09] MEDS: SODIUM BICARBONATE 150 MEQ in D5W 1,000 ML IV SCH (04:10)
[2018-08-09] MEDS: MORPHINE IV PRN ×2 (06:30→15:51)
[2018-08-09 06:47] LABS: Calcium 9.4 mg/dL (8.4-10.2)
[2018-08-09] MEDS: KEFLEX PO SCH ×2 (10:43→22:42)
[2018-08-09] MEDS: FLOMAX PO SCH (10:44)
[2018-08-09] MEDS: HEPARIN SUB-Q SCH ×2 (10:44→22:41)
--- NOTE | 2018-08-09 11:20 | Progress Note ---
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 HENT: Normocephalic. Atraumatic. Patient has moist mucous membranes. EYES: Extraocular motions are intact. Pupils equal reactive to light bilaterally. NECK: Supple. Trachea is midline. CHEST/LUNGS: Clear to auscultation. There is no respiratory distress noted. HEART/CARDIOVASCULAR: Regular. There is mild tachycardia. There is no murmur. ABDOMEN: Abdomen is soft. There is some lower abdominal and or suprapubic tenderness to palpation. Patient has normal bowel sounds. SKIN: Skin is warm and dry. NEURO: The patient is awake, alert, and oriented. The patient is cooperative. The patient has no focal neurologic deficits. The patient has normal speech. MUSCULOSKELETAL: There is no tenderness or deformity. There is no evidence of acute injury. - Vital Signs Vital signs: Vital Signs - 12hr 08/09/18 08/09/18 08/09/18 05:31 07:00 07:36 Temperature 98.6 F 97.9 F Pulse Rate 54 L 116 H Respiratory 15 22 18 Rate Blood Pressure 137/88 115/79 O2 Sat by Pulse 96 95 Oximetry - Lab 08/07/18 18:49 08/09/18 05:54 Most recent lab results Calcium 9.4 mg/dL (8.4-10.2) 08/09/18 05:54 Magnesium 1.90 mg/dL (1.7-2.3) 08/09/18 05:54
--- NOTE | 2018-08-09 11:40 | Progress Note ---
Assessment and Plan Assessment and plan: --Abdominal pain; bladder outlet obstruction; Continue Ball catheterization, supportive care Urology evaluation noted and appreciated, DC home with Ball Following the office for further evaluation --Urinary tract infection; empiric antibiotics Follow cultures, IV fluids --Acute kidney injury; secondary to obstructive uropathy/ATN Creatinine improved from 8.7-2.4, gentle hydration, closely monitor renal function, avoid nephrotoxins Nephrology following --Hyperkalemia; resolved --Hypercalcemia; secondary to dehydration, normal range today --Hypertension; moderate control, continue current antihypertensives and when necessary medications --Metabolic acidosis; on bicarbonate replacement Closely monitor --DVT prophylaxis; heparin renal dose Continue current management Plan of care reviewed for the patient and the nurse Possible discharge in 1-2 days if stable History Interval history: Patient seen and examined medical records reviewed No new events reported by the nursing staff Feels slightly better Vital signs noted Hospitalist Physical - Constitutional Vitals: Temp Pulse Resp BP Pulse Ox 97.9 F 116 H 18 115/79 95 08/09/18 07:36 08/09/18 07:36 08/09/18 07:36 08/09/18 07:36 08/09/18 07:36 General appearance: Present: no acute distress, well-nourished - EENT Eyes: Present: PERRL, EOM intact - Neck Neck: Present: supple, normal ROM - Respiratory Respiratory effort: normal Respiratory: bilateral: diminished, negative: rales, rhonchi, wheezing - Cardiovascular Rhythm: regular Heart Sounds: Present: S1 & S2 - Extremities Extremities: no ischemia, No edema - Abdominal General gastrointestinal: soft, non-tender, non-distended, normal bowel sounds - Integumentary Integumentary: Present: clear, warm - Psychiatric Psychiatric: appropriate mood/affect, cooperative - Neurologic Neurologic: CNII-XII intact, moves all extremities Results - Labs CBC & Chem 7: 08/07/18 18:49 08/09/18 05:54 Labs: Laboratory Last Values WBC 6.7 K/mm3 (4.5-11.0) 08/07/18 18:49 RBC 4.34 M/mm3 (3.65-5.03) 08/07/18 18:49 Hgb 13.2 gm/dl (11.8-15.2) 08/07/18 18:49 Hct 38.5 % (35.5-45.6) 08/07/18 18:49 MCV 89 fl (84-94) 08/07/18 18:49 MCH 31 pg (28-32) 08/07/18 18:49 MCHC 34 % (32-34) 08/07/18 18:49 RDW 15.7 % (13.2-15.2) H 08/07/18 18:49 Plt Count 293 K/mm3 (140-440) 08/07/18 18:49 Add Manual Diff Complete 08/07/18 18:49 Total Counted 100 08/07/18 18:49 Seg Neuts % (Manual) 89.0 % (40.0-70.0) H 08/07/18 18:49 Band Neutrophils % 1.0 % 08/07/18 18:49 Lymphocytes % (Manual) 8.0 % (13.4-35.0) L 08/07/18 18:49 Reactive Lymphs % (Man) 0 % 08/07/18 18:49 Monocytes % (Manual) 1.0 % (0.0-7.3) 08/07/18 18:49 Eosinophils % (Manual) 0 % (0.0-4.3) 08/07/18 18:49 Basophils % (Manual) 0 % (0.0-1.8) 08/07/18 18:49 Metamyelocytes % 0 % 08/07/18 18:49 Myelocytes % 1.0 % 08/07/18 18:49 Promyelocytes % 0 % 08/07/18 18:49 Blast Cells % 0 % 08/07/18 18:49 Nucleated RBC % Not Reportable 08/07/18 18:49 Seg Neutrophils # Man 6.0 K/mm3 (1.8-7.7) 08/07/18 18:49 Band Neutrophils # 0.1 K/mm3 08/07/18 18:49 Lymphocytes # (Manual) 0.5 K/mm3 (1.2-5.4) L 18 18:49 Abs React Lymphs (Man) 0.0 K/mm3 08/07/18 18:49 Monocytes # (Manual) 0.1 K/mm3 (0.0-0.8) 08/07/18 18:49 Eosinophils # (Manual) 0.0 K/mm3 (0.0-0.4) 08/07/18 18:49 Basophils # (Manual) 0.0 K/mm3 (0.0-0.1) 08/07/18 18:49 Metamyelocytes # 0.0 K/mm3 08/07/18 18:49 Myelocytes # 0.1 K/mm3 08/07/18 18:49 Promyelocytes # 0.0 K/mm3 08/07/18 18:49 Blast Cells # 0.0 K/mm3 08/07/18 18:49 WBC Morphology Not Reportable 08/07/18 18:49 Hypersegmented Neuts Few 08/07/18 18:49 Hyposegmented Neuts Not Reportable 08/07/18 18:49 Hypogranular Neuts Not Reportable 08/07/18 18:49 Smudge Cells Not Reportable 08/07/18 18:49 Toxic Granulation Not Reportable 08/07/18 18:49 Toxic Vacuolation Not Reportable 08/07/18 18:49 Dohle Bodies Not Reportable 08/07/18 18:49 Pelger-Huet Anomaly Not Reportable 08/07/18 18:49 Yenny Rods Not Reportable 08/07/18 18:49 Platelet Estimate Consistent w auto 08/07/18 18:49 Clumped Platelets Not Reportable 08/07/18 18:49 Plt Clumps, EDTA Not Reportable 08/07/18 18:49 Large Platelets Not Reportable 08/07/18 18:49 Giant Platelets Not Reportable 08/07/18 18:49 Platelet Satelliting Not Reportable 08/07/18 18:49 Plt Morphology Comment Not Reportable 08/07/18 18:49 RBC Morphology Not Reportable 08/07/18 18:49 Dimorphic RBCs Not Reportable 08/07/18 18:49 Polychromasia Not Reportable 08/07/18 18:49 Hypochromasia Not Reportable 08/07/18 18:49 Poikilocytosis 3+ 08/07/18 18:49 Anisocytosis 2+ 08/07/18 18:49 Microcytosis Not Reportable 08/07/18 18:49 Macrocytosis Not Reportable 08/07/18 18:49 Spherocytes Not Reportable 08/07/18 18:49 Pappenheimer Bodies Not Reportable 08/07/18 18:49 Sickle Cells Not Reportable 08/07/18 18:49 Target Cells Not Reportable 08/07/18 18:49 Tear Drop Cells Not Reportable 08/07/18 18:49 Ovalocytes 2+ 08/07/18 18:49 Helmet Cells Not Reportable 08/07/18 18:49 [place] Bodies Not Reportable 08/07/18 18:49 [place] Rings Not Reportable 08/07/18 18:49 [place] Cells Not Reportable 08/07/18 18:49 Bite Cells Not Reportable 08/07/18 18:49 Crenated Cell Not Reportable 08/07/18 18:49 Elliptocytes 3+ 08/07/18 18:49 Acanthocytes (Spur) Not Reportable 08/07/18 18:49 Rouleaux Not Reportable 08/07/18 18:49 Hemoglobin C Crystals Not Reportable 08/07/18 18:49 Schistocytes Not Reportable 08/07/18 18:49 Malaria parasites Not Reportable 08/07/18 18:49 Kei Bodies Not Reportable 08/07/18 18:49 Hem Pathologist Commnt No 08/07/18 18:49 Sodium 141 mmol/L (137-145) 08/09/18 05:54 Potassium 4.3 mmol/L (3.6-5.0) 08/09/18 05:54 Chloride 104.7 mmol/L (98-107) 08/09/18 05:54 Carbon Dioxide 23 mmol/L (22-30) D 08/09/18 05:54 Anion Gap 18 mmol/L 08/09/18 05:54 BUN 60 mg/dL (9-20) H 08/09/18 05:54 Creatinine 2.4 mg/dL (0.8-1.5) H D 08/09/18 05:54 Estimated GFR 34 ml/min 08/09/18 05:54 BUN/Creatinine Ratio 25 % 08/09/18 05:54 Glucose 107 mg/dL (75-100) H 08/09/18 05:54 Calcium 9.4 mg/dL (8.4-10.2) 08/09/18 05:54 Magnesium 1.90 mg/dL (1.7-2.3) 08/09/18 05:54 Total Bilirubin 1.00 mg/dL (0.1-1.2) 08/07/18 18:49 AST 14 units/L (5-40) 08/07/18 18:49 ALT 5 units/L (7-56) L 08/07/18 18:49 Alkaline Phosphatase 57 units/L (35-129) 08/07/18 18:49 Total Protein 9.9 g/dL (6.3-8.2) H 08/07/18 18:49 Albumin 5.4 g/dL (3.9-5) H 08/07/18 18:49 Albumin/Globulin Ratio 1.2 % 08/07/18 18:49 Urine Color Yellow (Yellow) 08/08/18 01:28 Urine Turbidity Clear (Clear) 08/08/18 01:28 Urine pH 5.0 (5.0-7.0) 08/08/18 01:28 Ur Specific [place] 1.012 (1.003-1.030) 08/08/18 01:28 Urine Protein 30 mg/dl mg/dL (Negative) 08/08/18 01:28 Urine Glucose (UA) Neg mg/dL (Negative) 08/08/18 01:28 Urine Ketones Neg mg/dL (Negative) 08/08/18 01:28 Urine Blood Lg (Negative) 08/08/18 01:28 Urine Nitrite Neg (Negative) 08/08/18 01:28 Urine Bilirubin Neg (Negative) 08/08/18 01:28 Urine Urobilinogen < 2.0 mg/dL (<2.0) 08/08/18 01:28 Ur Leukocyte Esterase Neg (Negative) 08/08/18 01:28 Urine WBC (Auto) 5.0 /HPF (0.0-6.0) 08/08/18 01:28 Urine RBC (Auto) 96.0 /HPF (0.0-6.0) 08/08/18 01:28 Urine Bacteria (Auto) 1+ /HPF (Negative) 08/08/18 01:28
[2018-08-09] MEDS: NACL 0.9% 1000 ML 1,000 ML IV SCH (15:52)
[2018-08-10] MEDS: NACL 0.9% 1000 ML 1,000 ML IV SCH ×2 (03:07→18:42)
[2018-08-10 05:51] LABS: Hematocrit 29.8 % (35.5-45.6); Hemoglobin 10.2 gm/dl (11.8-15.2); Mean Corpuscular HGB Conc 34 % (32-34); Mean Corpuscular Hemoglobin 30 pg (28-32); Mean Corpuscular Volume 89 fl (84-94); Red Blood Count 3.36 M/mm3 (3.65-5.03); Red Cell Distribution Width 15.5 % (13.2-15.2)
[2018-08-10 06:19] LABS: Calcium 8.9 mg/dL (8.4-10.2)
[2018-08-10 07:52] LABS: Anisocytosis 2+; Basophils % (Manual) 0 % (0.0-1.8); Total Cells Counted 100
[2018-08-10 07:53] LABS: Ovalocytes 2+; Poikilocytosis 2+
[2018-08-10 07:55] LABS: Bite Cells Few; Platelet Estimate Consistent w Auto; Tear Drop Cells Rare
[2018-08-10 07:56] LABS: Platelet Count 170 K/mm3 (140-440)
[2018-08-10] MEDS: KEFLEX PO SCH ×2 (10:15→22:24)
[2018-08-10] MEDS: HEPARIN SUB-Q SCH ×2 (10:15→22:24)
[2018-08-10] MEDS: FLOMAX PO SCH (10:15)
--- NOTE | 2018-08-10 10:34 | Progress Note ---
Subjective Principal diagnosis: nahomy Interval history: Patient was seen today for follow-up on multiple renal related issues Events of this hospitalization noted Noted to have obstructive uropathy which is improving markedly CAT scan showed evidence of bilateral hydronephrosis Patient denies having any chest pain pressure or shortness of breath Vitals labs intake output medications were reviewed Social history: Reviewed Allergies: Reviewed Family history: Reviewed Physical examination HEENT: Oral mucosa moist no pallor or icterus Neck: Supple no JVD Chest: Clear to auscultation anteriorly CVS: Regular rate and rhythm S1 and S2 heard Abdomen: Soft nontender no suprapubic masses no organomegaly appreciable Extremity: Dry skin less than 1+ peripheral edema Musculoskeletal: No joint effusion noted in knees and ankle Neurological: Alert awake Dermatology: No petechial rashes Psychiatry: No evidence of any agitation and aggression noted Assessment and plan Acute kidney injury: Marked improvement in renal function creatinine was 8.7 which is currently 1.7, urinalysis shows minimal proteinuria, but a large number of red blood cells Renal ultrasonogram shows: Evidence of bilateral hydronephrosis patient must be seen and followed by urology CAT scan done 08/07/2018 shows, bilateral hydronephrosis Blood pressure: Currently well controlled mild tachycardia currently improved Mild anemia hemoglobin currently 10.2 however there is a significant decline please monitor and follow Platelet count has declined from 293,000 to170 K please follow Bladder outlet obstruction: Patient does need to be seen and followed by urologist Hyperkalemia appears to have improved patient's potassium is currently 4.2, Metabolic acidosis, continue to monitor and follow improving renal function Overall patient is stable from renal standpoint can follow-up in the office upon discharge is stable otherwise Patient was adequately counseled and educated regarding multiple renal related issues Pertinent lab findings were discussed with patient, patient does exhibit good understanding of renal issues We'll continue to follow and make recommendation from renal standpoint Objective - Vital Signs Vital signs: Vital Signs - 12hr 08/09/18 08/10/18 08/10/18 23:09 05:03 08:21 Temperature 98.0 F 98.4 F 98.2 F Pulse Rate 97 H 93 H 89 Respiratory 18 18 18 Rate Blood Pressure 130/84 145/92 130/94 O2 Sat by Pulse 100 97 96 Oximetry - Lab 08/10/18 05:18 08/10/18 05:18 Most recent lab results Calcium 8.9 mg/dL (8.4-10.2) 08/10/18 05:18 Magnesium 1.90 mg/dL (1.7-2.3) 08/09/18 05:54
--- NOTE | 2018-08-10 14:09 | Query-Infection ---
Dear Date:___08/10/2018 Dbas/CDS:__Farrah Phone#:__[phone] Exercise your independent professional judgment when responding to this query. Questions asked do not imply a particular answer is desired or expected. We greatly appreciate your clarification on this issue. Clinical Documentation States: 58-year-old male presents to the emergency department with complaint of some chronic lower abdominal pain as well as some intermittent nausea, vomiting and diarrhea. Patient complains of difficulty with urination. The Hospitalist (Dr. Ferguson) progress note on 08/09/2018 stated "--Urinary tract infection; empiric antibiotics Follow cultures, IV fluids --Metabolic acidosis; on bicarbonate replacement Closely monitor." Clinical findings show: (please check applicable parameters) FL (08/08): 129 RR (08/08): 29 Infection, known /suspected, with some of the following indicators; Specify the infection: 3 General parameters [ ] Fever (core temp >38.30C or 100.40F) [ ] Hypothermia (core temp <36C) [X] Heart rate >90 bpm [X] Tachypnea: >20 bpm or pCO2 < 32 mmHg [ ] Altered mental status [ ] Significant edema / +ve fluid balance (>20 ml/kg 24 h) [ ] Hyperglycemia (Bl. glucose >110 mg/dl) w/o diabetes Inflammatory parameters [ ] Leukocytosis (white blood cell count >12,000/l) [ ] Leukopenia (white blood cell count <4,000/l) [ ] Bandemia (immature WBC > 10%) [ ] Leucocyte Left Shift [ ] Plasma procalcitonin>2 SD above the normal value Hemodynamic and tissue perfusion parameters [ ] Arterial hypotension(SBP <90 mmHg, MAP <70 mmHg,or a SBP drop >40 mmHg in adults) [ ] Hyperlactatemia (>3 mmol/l) [ ] Anion Gap (> 11mEG/l) [ ] Decreased capillary refill or mottling Organ dysfunction parameters [ ] Arterial hypoxemia (PaO2/FIO2 <300) [ ] Creatinine increase =0.5 mg/dl [ ] Acute oliguria (urine output <0.5 ml | kg |h or 45 mM/l for at least 2 hrs) [ ] Coagulation abnormalities (INR >1.5 or activated partial thromboplastin time >60 s) [ ] Ileus (absent bigg wel sounds) [ ] Thrombocytopenia (platelet count <100,000/l) [ ] Hyperbilirubinemia (plasma total bilirubin >4 mg/dl) According to the clinical indications above, can Bacteremia be further specified? If so, please indicate below and in your Progress Notes and/ or Discharge Summary. Indicate if the condition was present on admission. PHYSICIAN RESPONSE: [ ] Sepsis [ ] Severe Sepsis [ ] Septic Shock [ ] Septicemia [ ] Sepsis now resolved [ ] SIRS due to non-infectious cause with organ dysfunction [ ] SIRS due to non-infectious cause without organ dysfunction [x ] Other: sepsis due to Urinary tract infection [ ] Comment/Explanation: Present on Admission: [x] Yes (Y) [ ] Clinically undeterminable (W) [ ] No ( N) [ ] Ruled Out Please also document response in your Progress Notes and/or Discharge Summary and indicate if the condition was present on admission Notes: SIRS/ SIRS WITH ORGAN DYSFUNCTION Systemic inflammatory response syndrome (SIRS) generally refers to the systemic response to trauma/herrera or other insult such as Acute Myocardial Infarction, Acute Pancreatitis, and Major Surgery with symptoms including fever, tachycardia , tachypnea, and leukocytosis (1). BACTEREMIA Presence of viable bacteria in the circulating blood (2). This term is reserved for patients that do not manifest above SIRS response. SEPTICEMIA Generally refers to a systemic disease associated with the presence of pathological microorganisms or toxins in the blood, which can include bacteria, viruses, fungi or other organisms (1). SEPSIS Generally refers to SIRS due infection (1). SEVERE SEPSIS Generally refers to sepsis associated with acute organ dysfunction (1). SEPTIC SHOCK Generally refers to circulatory failure associated with severe sepsis (2), and defined as hypotension or hypoperfusion despite adequate fluid resuscitation (1 hour) (3). REFERENCES: 1. [place] [employer]/Society of Critical Care Medicine Consensus Conference. Definitions for sepsis and organ failure and guidelines for the use of innovative therapies in sepsis. Critical Care Med 1992;20:864 - 74. 2. Andres phelps MM, Kimberly MP, Rambo CHAO, Giuseppe E, Lincoln D, Williams D, Bone J, [place] SM , Scott JL, Valentin G; International Sepsis Definitions Conference. 2001 SCCM/ESICM/ACCP/ATS/SIS International Sepsis Definitions Conference. Intensive Care Med. 2002 Apr;29(4):530-8. Epub 2002Feb 07. Review. PubMed PMID:[id number] 3. ICD-9-CM Official Guidelines for Coding and Reporting 4. Medscape Drugs, Diseases and Procedures references 5. [employer] Textbook of Internal Medicine. 18th Edition MTDD
--- NOTE | 2018-08-10 17:08 | Progress Note ---
Assessment and Plan Assessment and plan: --Urinary tract infection; empiric antibiotics Follow cultures, IV fluids --Abdominal pain; bladder outlet obstruction; Continue Ball catheterization, supportive care Urology evaluation noted and appreciated, DC home with Ball Following the office for further evaluation --Acute kidney injury; secondary to obstructive uropathy/ATN Creatinine improved from 8.7-2.4, gentle hydration, closely monitor renal function, avoid nephrotoxins Nephrology following --Hyperkalemia; resolved --Hypercalcemia; secondary to dehydration, normal range today --Hypertension; moderate control, continue current antihypertensives and when necessary medications --Metabolic acidosis; on bicarbonate replacement Closely monitor --DVT prophylaxis; heparin renal dose Continue current management Plan of care reviewed for the patient and the nurse Possible discharge in 1-2 days if stable History Interval history: Patient seen and examined medical records reviewed Physical site for better no new complaints Vital signs reviewed Alert awake oriented 3 not in acute distress Hospitalist Physical - Constitutional Vitals: Temp Pulse Resp BP Pulse Ox 97.9 F 85 18 130/88 97 08/10/18 16:50 08/10/18 16:50 08/10/18 16:50 08/10/18 16:50 08/10/18 16:50 General appearance: Present: no acute distress, well-nourished - EENT Eyes: Present: PERRL, EOM intact - Neck Neck: Present: supple, normal ROM - Respiratory Respiratory effort: normal Respiratory: bilateral: diminished, negative: rales, rhonchi, wheezing - Cardiovascular Rhythm: regular Heart Sounds: Present: S1 & S2 - Extremities Extremities: no ischemia, No edema - Abdominal General gastrointestinal: soft, non-tender, non-distended, normal bowel sounds - Integumentary Integumentary: Present: clear, warm - Psychiatric Psychiatric: appropriate mood/affect, cooperative - Neurologic Neurologic: CNII-XII intact, moves all extremities Results - Labs CBC & Chem 7: 08/10/18 05:18 08/10/18 05:18 Labs: Laboratory Last Values WBC 4.9 K/mm3 (4.5-11.0) 08/10/18 05:18 RBC 3.36 M/mm3 (3.65-5.03) L 08/10/18 05:18 Hgb 10.2 gm/dl (11.8-15.2) L D 08/10/18 05:18 Hct 29.8 % (35.5-45.6) L D 08/10/18 05:18 MCV 89 fl (84-94) 08/10/18 05:18 MCH 30 pg (28-32) 08/10/18 05:18 MCHC 34 % (32-34) 08/10/18 05:18 RDW 15.5 % (13.2-15.2) H 08/10/18 05:18 Plt Count 170 K/mm3 (140-440) 08/10/18 05:18 Add Manual Diff Complete 08/10/18 05:18 Total Counted 100 08/10/18 05:18 Seg Neuts % (Manual) 52.0 % (40.0-70.0) 08/10/18 05:18 Band Neutrophils % 0 % 08/10/18 05:18 Lymphocytes % (Manual) 30.0 % (13.4-35.0) 08/10/18 05:18 Reactive Lymphs % (Man) 0 % 08/10/18 05:18 Monocytes % (Manual) 14.0 % (0.0-7.3) H 08/10/18 05:18 Eosinophils % (Manual) 4.0 % (0.0-4.3) 08/10/18 05:18 Basophils % (Manual) 0 % (0.0-1.8) 08/10/18 05:18 Metamyelocytes % 0 % 08/10/18 05:18 Myelocytes % 0 % 08/10/18 05:18 Promyelocytes % 0 % 08/10/18 05:18 Blast Cells % 0 % 08/10/18 05:18 Nucleated RBC % Not Reportable 08/10/18 05:18 Seg Neutrophils # Man 2.5 K/mm3 (1.8-7.7) 08/10/18 05:18 Band Neutrophils # 0.0 K/mm3 08/10/18 05:18 Lymphocytes # (Manual) 1.5 K/mm3 (1.2-5.4) 08/10/18 05:18 Abs React Lymphs (Man) 0.0 K/mm3 08/10/18 05:18 Monocytes # (Manual) 0.7 K/mm3 (0.0-0.8) 08/10/18 05:18 Eosinophils # (Manual) 0.2 K/mm3 (0.0-0.4) 08/10/18 05:18 Basophils # (Manual) 0.0 K/mm3 (0.0-0.1) 08/10/18 05:18 Metamyelocytes # 0.0 K/mm3 08/10/18 05:18 Myelocytes # 0.0 K/mm3 08/10/18 05:18 Promyelocytes # 0.0 K/mm3 08/10/18 05:18 Blast Cells # 0.0 K/mm3 08/10/18 05:18 WBC Morphology Not Reportable 08/10/18 05:18 Hypersegmented Neuts Not Reportable 08/10/18 05:18 Hyposegmented Neuts Not Reportable 08/10/18 05:18 Hypogranular Neuts Not Reportable 08/10/18 05:18 Smudge Cells Not Reportable 08/10/18 05:18 Toxic Granulation Not Reportable 08/10/18 05:18 Toxic Vacuolation Not Reportable 08/10/18 05:18 Dohle Bodies Not Reportable 08/10/18 05:18 Pelger-Huet Anomaly Not Reportable 08/10/18 05:18 Yenny Rods Not Reportable 08/10/18 05:18 Platelet Estimate Consistent w auto 08/10/18 05:18 Clumped Platelets Not Reportable 08/10/18 05:18 Plt Clumps, EDTA Not Reportable 08/10/18 05:18 Large Platelets Not Reportable 08/10/18 05:18 Giant Platelets Not Reportable 08/10/18 05:18 Platelet Satelliting Not Reportable 08/10/18 05:18 Plt Morphology Comment Not Reportable 08/10/18 05:18 RBC Morphology Not Reportable 08/10/18 05:18 Dimorphic RBCs Not Reportable 08/10/18 05:18 Polychromasia Not Reportable 08/10/18 05:18 Hypochromasia Not Reportable 08/10/18 05:18 Poikilocytosis 2+ 08/10/18 05:18 Anisocytosis 2+ 08/10/18 05:18 Microcytosis Not Reportable 08/10/18 05:18 Macrocytosis Not Reportable 08/10/18 05:18 Spherocytes Not Reportable 08/10/18 05:18 Pappenheimer Bodies Not Reportable 08/10/18 05:18 Sickle Cells Not Reportable 08/10/18 05:18 Target Cells Not Reportable 08/10/18 05:18 Tear Drop Cells Rare 08/10/18 05:18 Ovalocytes 2+ 08/10/18 05:18 Helmet Cells Not Reportable 08/10/18 05:18 [place] Bodies Not Reportable 08/10/18 05:18 Mcewen Rings Not Reportable 08/10/18 05:18 [place] Cells Not Reportable 08/10/18 05:18 Bite Cells Few 08/10/18 05:18 Crenated Cell Not Reportable 08/10/18 05:18 Elliptocytes 1+ 08/10/18 05:18 Acanthocytes (Spur) Not Reportable 08/10/18 05:18 Rouleaux Not Reportable 08/10/18 05:18 Hemoglobin C Crystals Not Reportable 08/10/18 05:18 Schistocytes Not Reportable 08/10/18 05:18 Malaria parasites Not Reportable 08/10/18 05:18 Kei Bodies Not Reportable 08/10/18 05:18 Hem Pathologist Commnt No 08/10/18 05:18 Sodium 141 mmol/L (137-145) 08/10/18 05:18 Potassium 4.2 mmol/L (3.6-5.0) 08/10/18 05:18 Chloride 106.0 mmol/L (98-107) 08/10/18 05:18 Carbon Dioxide 24 mmol/L (22-30) 08/10/18 05:18 Anion Gap 15 mmol/L 08/10/18 05:18 BUN 42 mg/dL (9-20) H 08/10/18 05:18 Creatinine 1.7 mg/dL (0.8-1.5) H 08/10/18 05:18 Estimated GFR 51 ml/min 08/10/18 05:18 BUN/Creatinine Ratio 25 % 08/10/18 05:18 Glucose 92 mg/dL (75-100) 08/10/18 05:18 Calcium 8.9 mg/dL (8.4-10.2) 08/10/18 05:18 Magnesium 1.90 mg/dL (1.7-2.3) 08/09/18 05:54 Total Bilirubin 1.00 mg/dL (0.1-1.2) 08/07/18 18:49 AST 14 units/L (5-40) 08/07/18 18:49 ALT 5 units/L (7-56) L 08/07/18 18:49 Alkaline Phosphatase 57 units/L (35-129) 08/07/18 18:49 Total Protein 9.9 g/dL (6.3-8.2) H 08/07/18 18:49 Albumin 5.4 g/dL (3.9-5) H 08/07/18 18:49 Albumin/Globulin Ratio 1.2 % 08/07/18 18:49 Urine Color Yellow (Yellow) 08/08/18 01:28 Urine Turbidity Clear (Clear) 08/08/18 01:28 Urine pH 5.0 (5.0-7.0) 08/08/18 01:28 Ur Specific [place] 1.012 (1.003-1.030) 08/08/18 01:28 Urine Protein 30 mg/dl mg/dL (Negative) 08/08/18 01:28 Urine Glucose (UA) Neg mg/dL (Negative) 08/08/18 01:28 Urine Ketones Neg mg/dL (Negative) 08/08/18 01:28 Urine Blood Lg (Negative) 08/08/18 01:28 Urine Nitrite Neg (Negative) 08/08/18 01:28 Urine Bilirubin Neg (Negative) 08/08/18 01:28 Urine Urobilinogen < 2.0 mg/dL (<2.0) 08/08/18 01:28 Ur Leukocyte Esterase Neg (Negative) 08/08/18 01:28 Urine WBC (Auto) 5.0 /HPF (0.0-6.0) 08/08/18 01:28 Urine RBC (Auto) 96.0 /HPF (0.0-6.0) 08/08/18 01:28 Urine Bacteria (Auto) 1+ /HPF (Negative) 08/08/18 01:28
[2018-08-10] MEDS: MORPHINE IV PRN (18:43)
[2018-08-11] MEDS: MORPHINE IV PRN ×2 (00:04→08:05)
[2018-08-11 07:39] LABS: BUN/Creatinine Ratio 19; Blood Urea Nitrogen 27 mg/dL (9-20); Calcium 8.9 mg/dL (8.4-10.2); Hemolysis Index 2
[2018-08-11] MEDS: NACL 0.9% 1000 ML 1,000 ML IV SCH (08:04)
--- NOTE | 2018-08-11 09:21 | Progress Note ---
Subjective Principal diagnosis: nahomy Interval history: Patient was seen today for follow-up on multiple renal related issues Events of this hospitalization noted, creatinine has markedly improved Has obstructive uropathy which is also improving well patient in general has been feeling much better Vitals labs intake output medications were reviewed Social history: Reviewed Allergies: Reviewed Family history: Reviewed Physical examination HEENT: Oral mucosa moist no pallor or icterus Neck: Supple no JVD Chest: Clear to auscultation anteriorly CVS: Regular rate and rhythm S1 and S2 heard Abdomen: Soft nontender no suprapubic masses no organomegaly appreciable Extremity: Dry skin less than 1+ peripheral edema Musculoskeletal: No joint effusion noted in knees and ankle Neurological: Alert awake Dermatology: No petechial rashes Psychiatry: No evidence of any agitation and aggression noted Assessment and plan Acute kidney injury: Marked improvement in renal function creatinine was 8.7 which is currently 1.7, urinalysis shows minimal proteinuria, but a large number of red blood cells Creatinine has currently normalized to 1.4, will sign off the case please call if needed She will need to be seen in the office upon discharge within a week or 2 Renal ultrasonogram shows: Evidence of bilateral hydronephrosis patient must be seen and followed by urology CAT scan done 08/07/2018 shows, bilateral hydronephrosis Blood pressure: Currently well controlled mild tachycardia currently improved Mild anemia monitor hemoglobin and hematocrit, through Hospital medicine Platelet count has declined from 293,000 to170 K please follow Bladder outlet obstruction: Will need to be seen and followed by urology Hyperkalemia resolved at this time Metabolic acidosis, continue to monitor and follow improving renal function Overall patient is stable from renal standpoint can follow-up in the office upon discharge is stable otherwise Patient was adequately counseled and educated regarding multiple renal related issues Pertinent lab findings were discussed with patient, patient does exhibit good understanding of renal issues We'll continue to follow and make recommendation from renal standpoint Objective - Vital Signs Vital signs: Vital Signs - 12hr 08/10/18 08/10/18 08/11/18 22:45 23:49 00:04 Temperature 97.3 F L Pulse Rate 90 Pulse Rate [ 82 Apical] Respiratory 18 20 18 Rate Respiratory Rate [Penis] Blood Pressure 130/88 Blood Pressure [Left] O2 Sat by Pulse 98 95 Oximetry 08/11/18 08/11/18 08/11/18 00:09 00:34 04:51 Temperature 97.7 F Pulse Rate 79 Pulse Rate [ Apical] Respiratory 18 20 Rate Respiratory 20 Rate [Penis] Blood Pressure 124/90 Blood Pressure [Left] O2 Sat by Pulse 97 Oximetry 08/11/18 08:18 Temperature 98.1 F Pulse Rate 72 Pulse Rate [ Apical] Respiratory 18 Rate Respiratory Rate [Penis] Blood Pressure Blood Pressure 128/89 [Left] O2 Sat by Pulse Oximetry - Lab 08/10/18 05:18 08/11/18 06:02 Most recent lab results Calcium 8.9 mg/dL (8.4-10.2) 08/11/18 06:02 Magnesium 1.90 mg/dL (1.7-2.3) 08/09/18 05:54
[2018-08-11] MEDS: HEPARIN SUB-Q SCH (10:32)
[2018-08-11] MEDS: FLOMAX PO SCH (10:32)
[2018-08-11] MEDS: KEFLEX PO SCH (10:32)
--- NOTE | 2018-08-11 11:53 | Discharge Summary ---
Providers - Providers Date of Admission: 08/08/18 02:51 Date of discharge: 08/11/18 Attending physician: JIM PERDOMO 08/07/18 23:00 Consult to Physician [CONS] Routine Comment: Dr. Rey spoke with Dr. Elliott @ [phone] Consulting Provider: ISSA ELLIOTT Physician Instructions: Reason For Exam: acute renal failure, hyperkalemia 08/08/18 12:23 Consult to Physician [CONS] Routine Comment: Consulting Provider: JAKE GOODMAN Physician Instructions: Reason For Exam: Bladder outlet obstruction Primary care physician: KILN CHARGER Hospitalization Condition: Serious Disposition: DC-01 TO HOME OR SELFCARE Time spent for discharge: 32 min Core Measure Documentation - Palliative Care Palliative Care/ Comfort Measures: Not Applicable - Core Measures Any of the following diagnoses?: none Exam - Constitutional Vitals: Temp Pulse Resp BP Pulse Ox 98.1 F 72 18 128/89 97 08/11/18 08:18 08/11/18 08:18 08/11/18 08:18 08/11/18 08:18 08/11/18 04:51 General appearance: Present: no acute distress, well-nourished - EENT Eyes: Present: PERRL, EOM intact - Neck Neck: Present: supple - Respiratory Respiratory effort: normal Respiratory: negative: rales, rhonchi, wheezing - Cardiovascular Rhythm: regular Heart Sounds: Present: S1 & S2 - Extremities Extremities: no ischemia, No edema - Abdominal General gastrointestinal: Present: soft, non-tender, non-distended, normal bowel sounds - Integumentary Integumentary: Present: clear, warm - Musculoskeletal Musculoskeletal: strength equal bilaterally - Psychiatric Psychiatric: appropriate mood/affect, cooperative - Neurologic Neurologic: CNII-XII intact, moves all extremities Plan Activity: no restrictions Diet: regular Additional Instructions: DC home with Ball in place. Follow urology in 1 week Follow up with: LICHA VALERIO MD [Primary Care Provider] - 3-5 Days REUBEN MCCOLLUM MD [Staff Physician] - 7 Days Prescriptions: cephALEXin [Keflex] 500 mg PO Q12HR #14 cap Tamsulosin [Flomax] 0.4 mg PO QDAY #30 cap
[2018-08-11 14:21] VITALS: BP 128/87
== END 2018-08-11 19:16 | disposition home or self-care (01) | DRG 871 ==
LOC: ED 16:13 → 4A 08-08 02:51
PROVIDERS: ADMIT Internal Medicine; ATTEND Internal Medicine
DX: A41.9 Sepsis, unspecified organism (principal); N17.0 Acute kidney failure with tubular necrosis; E87.2 Acidosis; N13.6 Pyonephrosis; N32.0 Bladder-neck obstruction; E87.5 Hyperkalemia; N40.0 Benign prostatic hyperplasia without lower urinary tract symptoms; F25.9 Schizoaffective disorder, unspecified; F17.210 Nicotine dependence, cigarettes, uncomplicated; G89.29 Other chronic pain; R10.30 Lower abdominal pain, unspecified; N13.9 Obstructive and reflux uropathy, unspecified; E83.52 Hypercalcemia; D64.9 Anemia, unspecified; Z59.0 Homelessness; Z71.6 Tobacco abuse counseling
CPT/HCPCS: 36415; 74176; 76770; 80048; 80053; 81001; 83735; 85007; 85025; 87086; 93005; 93010; 96374; 96375; 99406; J0610; J1644; J1815; J2270; J7030; J7040; J7070

== ENCOUNTER 2019-12-20 03:12 | Emergency (ER) | payer MEDICARE ==
[2019-12-20 04:01] LABS: Basophils % (Auto) 0.5 % (0.0-1.8); Eosinophils % (Auto) 0.2 % (0.0-4.3); Hematocrit 45.7 % (35.5-45.6); Hemoglobin 15.1 gm/dl (11.8-15.2); Lymphocytes # (Auto) 1.2 K/mm3 (1.2-5.4); Lymphocytes % (Auto) 13.1 % (13.4-35.0); Mean Corpuscular HGB Conc 33 % (32-34); Mean Corpuscular Volume 94 fl (84-94); Monocytes # (Auto) 0.6 K/mm3 (0.0-0.8); Monocytes % (Auto) 6.8 % (0.0-7.3); Platelet Count 255 K/mm3 (140-440); Red Blood Count 4.88 M/mm3 (3.65-5.03); Red Cell Distribution Width 14.8 % (13.2-15.2)
[2019-12-20 04:06] LABS: Bacteria,Urine 1+ /HPF (Negative); Bilirubin,Urine NEG (Negative); Blood,Urine SM (Negative); Color,Urine Amber (Yellow); Mucus,Urine 1+ /HPF
[2019-12-20 04:13] LABS: Amphetamine Screen,Urine PRESUMPTIVE NEGATIVE; Benzodiazepines Screen,Urine PRESUMPTIVE NEGATIVE; Cannabinoid Screen,Urine PRESUMPTIVE NEGATIVE; Methadone Screen,Urine PRESUMPTIVE NEGATIVE; Opiate Screen,Urine PRESUMPTIVE NEGATIVE
--- NOTE | 2019-12-20 04:20 | Emergency Department Report ---
ED Psych HPI - General Chief Complaint: Psych Stated Complaint: SUICIDAL Time Seen by Provider: 12/20/19 03:20 Source: patient, EMS, old records reviewed Mode of arrival: Stretcher Limitations: No Limitations - History of Present Illness Initial Comments: cc: "The voices are back." HPI: Mr. Serna is a 59-year-old male with history of schizoaffective disorder, polysubstance abuse, BPH presents with auditory hallucinations and suicidal ideation. Previously he was treated with a "shot" and Celexa. He admittedly stop taking psychiatric medication because he felt that his symptoms were stable. Last use of cocaine yesterday. He is currently homeless. He does not have a specific plan to harm himself. "The voices are telling me to hurt myself." Mr. Serna arrived per EMS. Complaint: suicidal ideation, other (auditory hallucinations) -: Gradual, days(s) (1) Associated Psychiatric Symptoms: depression, suicidal ideation, auditory hallucinations History of same: Yes Quality: constant Improves With: none Worsens With: achohol, drug use Context: not taking psychiatric Associated Symptoms: denies other symptoms Treatments Prior to Arrival: none If Self Harm: admits thoughts of - Related Data Previous Rx's Medication Instructions Recorded Last Taken Type Docusate Sodium [Colace CAP] 100 mg PO BID PRN #20 capsule 07/04/18 Unknown Rx Polyethylene Glycol 3350 [Miralax 17 gm PO QDAY PRN #7 packet 07/04/18 Unknown Rx 3350] cephALEXin [Keflex] 500 mg PO Q12HR #14 cap 08/11/18 Unknown Rx Tamsulosin [Flomax] 0.4 mg PO QDAY #30 cap 09/16/18 Unknown Rx levoFLOXacin [Levaquin TAB] 500 mg PO QDAY #10 tablet 09/16/18 Unknown Rx Allergies Allergy/AdvReac Type Severity Reaction Status Date / Time No Known Allergies Allergy Verified 09/15/18 14:57 ED Review of Systems ROS: Stated complaint: SUICIDAL Other details as noted in HPI Comment: All other systems reviewed and negative Constitutional: denies: fever, malaise Cardiovascular: denies: chest pain Gastrointestinal: denies: abdominal pain, nausea Psychiatric: depression, auditory hallucinations, suicidal thoughts ED Past Medical Hx - Past Medical History Previous Medical History?: Yes Hx Congestive Heart Failure: No Hx Diabetes: No Hx Psychiatric Treatment: Yes (SCHIZO-EFFECTIVE) Hx Asthma: No Hx COPD: No Hx HIV: No Additional medical history: BPH - Social History Smoking Status: Current Every Day Smoker Substance Use Type: Cocaine, Marijuana - Medications Home Medications: Home Medications Medication Instructions Recorded Confirmed Last Taken Type Docusate Sodium [Colace CAP] 100 mg PO BID PRN #20 capsule 07/04/18 08/08/18 Unknown Rx Polyethylene Glycol 3350 [Miralax 17 gm PO QDAY PRN #7 packet 07/04/18 08/08/18 Unknown Rx 3350] cephALEXin [Keflex] 500 mg PO Q12HR #14 cap 08/11/18 Unknown Rx Tamsulosin [Flomax] 0.4 mg PO QDAY #30 cap 09/16/18 Unknown Rx levoFLOXacin [Levaquin TAB] 500 mg PO QDAY #10 tablet 09/16/18 Unknown Rx ED Physical Exam - General Limitations: No Limitations General appearance: alert, in no apparent distress, other (healthy well-ap pearing) - Head Head exam: Present: atraumatic, normocephalic - Eye Eye exam: Present: normal appearance - ENT ENT exam: Present: mucous membranes moist - Neck Neck exam: Present: normal inspection, full ROM - Respiratory Respiratory exam: Present: normal lung sounds bilaterally. Absent: respiratory distress, wheezes, rales, rhonchi - Cardiovascular Cardiovascular Exam: Present: regular rate, normal rhythm, normal heart sounds. Absent: systolic murmur, diastolic murmur, rubs, gallop - GI/Abdominal GI/Abdominal exam: Present: soft, normal bowel sounds. Absent: distended, tenderness, guarding, rebound - Rectal Rectal exam: Present: deferred - Extremities Exam Extremities exam: Present: normal inspection - Neurological Exam Neurological exam: Present: alert, oriented X3 - Psychiatric Psychiatric exam: Present: normal affect, depressed - Skin Skin exam: Present: warm, dry, intact, normal color. Absent: rash ED Course Vital Signs 12/20/19 03:21 Temperature 97.6 F Pulse Rate 96 H Respiratory 17 Rate Blood Pressure 153/113 [Right] O2 Sat by Pulse 96 Oximetry ED Medical Decision Making - Lab Data Result diagrams: 12/20/19 03:36 12/20/19 03:36 Laboratory Results - last 24 hr 12/20/19 12/20/1920 03:21 03:21 03:36 WBC 9.3 RBC 4.88 Hgb 15.1 Hct 45.7 H MCV 94 MCH 31 MCHC 33 RDW 14.8 Plt Count 255 Lymph % (Auto) 13.1 L [place] % (Auto) 6.8 Eos % (Auto) 0.2 Baso % (Auto) 0.5 Lymph # 1.2 Whiteside # 0.6 Eos # 0.0 Baso # 0.0 Seg Neutrophils % 79.4 H Seg Neutrophils # 7.4 Sodium Potassium Chloride Carbon Dioxide Anion Gap BUN Creatinine Estimated GFR BUN/Creatinine Ratio Glucose Calcium Total Bilirubin AST ALT Alkaline Phosphatase Total Protein Albumin Albumin/Globulin Ratio Urine Color Indu Urine Turbidity Slightly-cloudy Urine pH 5.0 Ur Specific [place] 1.026 Urine Protein 30 mg/dl Urine Glucose (UA) Neg Urine Ketones Neg Urine Blood Sm Urine Nitrite Neg Urine Bilirubin Neg Urine Urobilinogen 4.0 Ur Leukocyte Esterase Tr Urine WBC (Auto) 7.0 H Urine RBC (Auto) 4.0 U Epithel Cells (Auto) 1.0 Urine Bacteria (Auto) 1+ Urine Mucus 1+ Salicylates Urine Opiates Screen Presumptive negative Urine Methadone Screen Presumptive negative Acetaminophen Ur Barbiturates Screen Presumptive negative Ur Phencyclidine Scrn Presumptive negative Ur Amphetamines Screen Presumptive negative U Benzodiazepines Scrn Presumptive negative Urine Cocaine Screen Presumptive positive U Marijuana (THC) Screen Presumptive negative Drugs of Abuse Note Disclamer Plasma/Serum Alcohol 12/20/19 12/20/19 12/20/19 03:36 03:36 03:36 WBC RBC Hgb Hct MCV MCH MCHC RDW Plt Count Lymph % (Auto) [place] % (Auto) Eos % (Auto) Baso % (Auto) Lymph # [place] # Eos # Baso # Seg Neutrophils % Seg Neutrophils # Sodium 141 Potassium 4.0 Chloride 102.0 Carbon Dioxide 22 Anion Gap 21 BUN 29 H Creatinine 2.0 H Estimated GFR 42 BUN/Creatinine Ratio 15 Glucose 109 H Calcium 9.6 Total Bilirubin 1.00 AST 13 ALT < 5 L Alkaline Phosphatase 81 Total Protein 8.6 H Albumin 4.9 Albumin/Globulin Ratio 1.3 Urine Color Urine Turbidity Urine pH Ur Specific [place] Urine Protein Urine Glucose (UA) Urine Ketones Urine Blood Urine Nitrite Urine Bilirubin Urine Urobilinogen Ur Leukocyte Esterase Urine WBC (Auto) Urine RBC (Auto) U Epithel Cells (Auto) Urine Bacteria (Auto) Urine Mucus Salicylates < 0.3 L Urine Opiates Screen Urine Methadone Screen Acetaminophen < 5.0 L Ur Barbiturates Screen Ur Phencyclidine Scrn Ur Amphetamines Screen U Benzodiazepines Scrn Urine Cocaine Screen U Marijuana (THC) Screen Drugs of Abuse Note Plasma/Serum Alcohol 12/20/19 03:36 WBC RBC Hgb Hct MCV MCH MCHC RDW Plt Count Lymph % (Auto) [place]ites[place] % (Auto) Eos % (Auto) Baso % (Auto) Lymph # [place] # Eos # Baso # Seg Neutrophils % Seg Neutrophils # Sodium Potassium Chloride Carbon Dioxide Anion Gap BUN Creatinine Estimated GFR BUN/Creatinine Ratio Glucose Calcium Total Bilirubin AST ALT Alkaline Phosphatase Total Protein Albumin Albumin/Globulin Ratio Urine Color Urine Turbidity Urine pH Ur Specific [place] Urine Protein Urine Glucose (UA) Urine Ketones Urine Blood Urine Nitrite Urine Bilirubin Urine Urobilinogen Ur Leukocyte Esterase Urine WBC (Auto) Urine RBC (Auto) U Epithel Cells (Auto) Urine Bacteria (Auto) Urine Mucus Salicylates Urine Opiates Screen Urine Methadone Screen Acetaminophen Ur Barbiturates Screen Ur Phencyclidine Scrn Ur Amphetamines Screen U Benzodiazepines Scrn Urine Cocaine Screen U Marijuana (THC) Screen Drugs of Abuse Note Plasma/Serum Alcohol < 0.01 - Medical Decision Making Mr. Serna is a 59-year-old male with history of schizoaffective disorder and recent cocaine use who presents with auditory hallucinations and suicidal ideation. He does not have a plan to harm himself or others He is currently medically clear for psychiatric care. Awaiting treatment recommendations by our psychiatric team. I have reviewed the labs. Labs are within normal limits. Mr. Serna has known CKD Critical care attestation.: If time is entered above; I have spent that time in minutes in the direct care of this critically ill patient, excluding procedure time. ED Disposition Condition: Stable Referrals: PRIMARY CARE, [Primary Care Provider] - 3-5 Days
[2019-12-20 04:25] LABS: Albumin 4.9 g/dL (3.9-5); BUN/Creatinine Ratio 15; Blood Urea Nitrogen 29 mg/dL (9-20); Calcium 9.6 mg/dL (8.4-10.2); Hemolysis Index 3
[2019-12-20 04:30] LABS: Alanine Aminotransferase < 5 units/L (7-56)
[2019-12-20 04:31] LABS: Cocaine Screen,Urine PRESUMPTIVE POSITIVE
[2019-12-20 14:39] VITALS: BP 117/90
== END 2019-12-20 16:58 ==
LOC: ED 03:12 → EEVIPCON 03:12 → ED 16:58
DX: F31.9 Bipolar disorder, unspecified (principal); F17.200 Nicotine dependence, unspecified, uncomplicated; F12.10 Cannabis abuse, uncomplicated; F14.10 Cocaine abuse, uncomplicated; Z79.899 Other long term (current) drug therapy
CPT/HCPCS: 36415; 80053; 80307; 80320; 81001; 85025; G0480

== ENCOUNTER 2020-11-11 16:45 | Emergency (ER) | payer MEDICARE ==
--- NOTE | 2020-11-11 18:40 | Emergency Department Report ---
ED General Adult HPI - General Chief complaint: Medical Clearance Stated complaint: SWOLLEN ANKLE Time Seen by Provider: 11/11/20 18:31 Source: patient Mode of arrival: Ambulatory Limitations: No Limitations - History of Present Illness Initial comments: The patient was evaluated in the emergency department for symptoms described in the history of present illness. He/she was evaluated in the context of the global COVID-19 pandemic, which necessitated consideration that the patient might be at risk for infection with the virus that causes COVID-19. Institutional protocols and algorithms that pertain to the evaluation of patients at risk for COVID-19 are in a state of rapid change based on information released by regulatory bodies including the CDC and federal and state organizations. These policies and algorithms were followed during the pat ient's care in the emergency department. Please note that these policies, procedures and recommendations changed on a rapid basis. 60-year-old -[place] male who was residing at the [facility] presents to the emergency room for 3-week history of ankle and feet swelling. Patient states it is worse when he walks. Patient admits that he walks a lot. Patient states making it better is elevating. Patient denies any shortness of breath denies any chest pain. Patient reports he does have a history of a schizoaffective disorder. He also reports a history of BPH and intermittent hypertension. Patient reports his meds was Seroquel Abilify Celexa and Risperdal. Patient review of chart shows that he has a history of polysubstance abuse. History of hyperkalemia acute renal injury. Onset/Timin -: week(s) Location: lower extremity Severity scale (0 -10): 3 Quality: aching Consistency: intermittent Improves with: rest (Elevation of feet) Worsens with: other (Walking too much) Associated Symptoms: denies other symptoms Treatments Prior to Arrival: none - Related Data Home Medications Medication Instructions Recorded Confirmed Last Taken ARIPiprazole [Abilify Maintena] 400 mg PO QMONTH 12/21/19 12/21/19 Unknown Previous Rx's Medication Instructions Recorded Last Taken Type Docusate Sodium [Colace CAP] 100 mg PO BID PRN #20 capsule 07/04/18 Unknown Rx Citalopram Hydrobromide 40 mg PO DAILY #30 12/27/19 Unknown Rx [Citalopram HBr] Doxepin [SINEquan] 25 mg PO QHS #30 capsule 12/27/19 Unknown Rx Trazodone HCl 150 mg PO QHS #30 12/27/19 Unknown Rx busPIRone [Buspar] 7.5 mg PO BID #60 tablet 12/27/19 Unknown Rx lamoTRIgine [LaMICtal] 25 mg PO BID #60 12/27/19 Unknown Rx polyethylene glycoL 3350 [Miralax 17 gm PO QDAY PRN #30 powd.pack 12/27/19 Unknown Rx 3350] predniSONE [Deltasone] 20 mg PO QDAY #30 tablet 12/27/19 Unknown Rx Compression Socks, Medium 1 each MC Q12H PRN #1 each 11/11/20 Unknown Rx [Compression Socks] Furosemide [Lasix] 20 mg PO QDAY #3 tablet 11/11/20 Unknown Rx Allergies Allergy/AdvReac Type Severity Reaction Status Date / Time No Known Allergies Allergy Verified 11/11/20 17:37 ED Review of Systems ROS: Stated complaint: SWOLLEN ANKLE Other details as noted in HPI Comment: All other systems reviewed and negative ED Past Medical Hx - Past Medical History Hx Hypertension: Yes Hx Congestive Heart Failure: No Hx Diabetes: No Hx Psychiatric Treatment: Yes (SCHIZO-EFFECTIVE) Hx Asthma: No Hx COPD: No Hx HIV: No Additional medical history: BPH - Surgical History Past Surgical History?: No - Social History Smoking Status: Current Every Day Smoker Substance Use Type: Cocaine, Marijuana - Medications Home Medications: Home Medications Medication Instructions Recorded Confirmed Last Taken Type Docusate Sodium [Colace CAP] 100 mg PO BID PRN #20 capsule 07/04/18 12/21/19 Unknown Rx ARIPiprazole [Abilify Maintena] 400 mg PO QMONTH 12/21/19 12/21/19 Unknown History Citalopram Hydrobromide 40 mg PO DAILY #30 12/27/19 Unknown Rx [Citalopram HBr] Doxepin [SINEquan] 25 mg PO QHS #30 capsule 12/27/19 Unknown Rx Trazodone HCl 150 mg PO QHS #30 12/27/19 Unknown Rx busPIRone [Buspar] 7.5 mg PO BID #60 tablet 12/27/19 Unknown Rx lamoTRIgine [LaMICtal] 25 mg PO BID #60 12/27/19 Unknown Rx polyethylene glycoL 3350 [Miralax 17 gm PO QDAY PRN #30 powd.pack 12/27/19 Unknown Rx 3350] predniSONE [Deltasone] 20 mg PO QDAY #30 tablet 12/27/19 Unknown Rx Compression Socks, Medium 1 each MC Q12H PRN #1 each 11/11/20 Unknown Rx [Compression Socks] Furosemide [Lasix] 20 mg PO QDAY #3 tablet 11/11/20 Unknown Rx ED Physical Exam - General Limitations: No Limitations General appearance: alert, in no apparent distress - Head Head exam: Present: atraumatic, normocephalic - ENT ENT exam: Present: mucous membranes moist - Cardiovascular Cardiovascular Exam: Present: regular rate, normal rhythm. Absent: systolic murmur, diastolic murmur, rubs, gallop - GI/Abdominal GI/Abdominal exam: Present: soft, normal bowel sounds - Extremities Exam Extremities exam: Present: full ROM, pedal edema (Bilateral). Absent: tenderness, joint swelling, calf tenderness - Back Exam Back exam: Present: normal inspection, full ROM - Neurological Exam Neurological exam: Present: alert, oriented X3, normal gait - Psychiatric Psychiatric exam: Present: normal affect, normal mood - Skin Skin exam: Present: warm, dry, intact, normal color. Absent: rash ED Course Vital Signs 11/11/20 17:39 Temperature 98.7 F Pulse Rate 93 H Respiratory 18 Rate Blood Pressure 137/99 O2 Sat by Pulse 98 Oximetry ED Medical Decision Making - Lab Data Result diagrams: 11/11/20 18:34 11/11/20 18:34 - Medical Decision Making 60-year-old -[place] male who was residing at the [facility] presents to the emergency room for 3-week history of ankle and feet swelling. Patient states it is worse when he walks. Patient admits that he walks a lot. Patient states making it better is elevating. Patient denies any shortness of breath denies any chest pain. Patient reports he does have a history of a schizoaffective disorder. He also reports a history of BPH and intermittent hypertension. Patient reports his meds was Seroquel Abilify Celexa and Risperdal. Patient review of chart shows that he has a history of polysubstance abuse. History of hyperkalemia acute renal injury. Will order basic labs. Critical care attestation.: If time is entered above; I have spent that time in minutes in the direct care of this critically ill patient, excluding procedure time. ED Disposition Clinical Impression: Bilateral lower extremity edema Disposition: TO HOME OR SELFCARE Is pt being admited?: No Does the pt Need Aspirin: No Condition: Stable Additional Instructions: Labs are within normal limits. This is a chronic issue. I recommend Lasix for 3 days. Elevate your feet try compression socks. Follow-up with your primary care provider. Prescriptions: Compression Socks, Medium [Compression Socks] 1 each MC Q12H PRN #1 each PRN Reason: leg swelling Furosemide [Lasix] 20 mg PO QDAY #3 tablet Referrals: NATHAN GLORIA MD [Staff Physician] - 3-5 Days
[2020-11-11 19:17] LABS: Alanine Aminotransferase 53 units/L (7-56); Albumin 3.6 g/dL (3.9-5); BUN/Creatinine Ratio 12; Blood Urea Nitrogen 16 mg/dL (9-20); Calcium 8.9 mg/dL (8.4-10.2); Hematocrit 32.8 % (35.5-45.6); Hemoglobin 10.6 gm/dl (11.8-15.2); Hemolysis Index 6; Mean Corpuscular HGB Conc 32 % (32-34); Mean Corpuscular Volume 96 fl (84-94); Platelet Count 204 K/mm3 (140-440); Red Blood Count 3.41 M/mm3 (3.65-5.03); Red Cell Distribution Width 16.6 % (13.2-15.2)
[2020-11-11 19:18] LABS: Basophils % (Auto) 0.6 % (0.0-1.8); Eosinophils # (Auto) 0.1 K/mm3 (0.0-0.4); Eosinophils % (Auto) 1.3 % (0.0-4.3); Lymphocytes # (Auto) 1.6 K/mm3 (1.2-5.4); Lymphocytes % (Auto) 32.3 % (13.4-35.0); Monocytes # (Auto) 0.6 K/mm3 (0.0-0.8); Monocytes % (Auto) 11.3 % (0.0-7.3)
[2020-11-11 20:45] VITALS: BP 130/92
== END 2020-11-11 20:44 | disposition home or self-care (01) ==
LOC: ED 16:45
DX: R60.9 Edema, unspecified (principal); I10 Essential (primary) hypertension; F25.9 Schizoaffective disorder, unspecified; F17.200 Nicotine dependence, unspecified, uncomplicated; F12.10 Cannabis abuse, uncomplicated; Z79.899 Other long term (current) drug therapy
CPT/HCPCS: 36415; 80053; 85025

== ENCOUNTER 2021-04-14 13:06 | Emergency (ER) | payer MEDICARE ==
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
[2021-04-14 13:53] LABS: Basophils # (Auto) 0.1 K/mm3 (0.0-0.1); Basophils % (Auto) 0.5 % (0.0-1.8); Eosinophils # (Auto) 0.1 K/mm3 (0.0-0.4); Eosinophils % (Auto) 0.6 % (0.0-4.3); Hematocrit 37.9 % (35.5-45.6); Hemoglobin 13.1 gm/dl (11.8-15.2); Lymphocytes # (Auto) 2.3 K/mm3 (1.2-5.4); Lymphocytes % (Auto) 23.7 % (13.4-35.0); Mean Corpuscular HGB Conc 35 % (32-34); Mean Corpuscular Volume 92 fl (84-94); Monocytes # (Auto) 0.6 K/mm3 (0.0-0.8); Monocytes % (Auto) 6.3 % (0.0-7.3); Platelet Count 189 K/mm3 (140-440); Red Blood Count 4.11 M/mm3 (3.65-5.03); Red Cell Distribution Width 16.3 % (13.2-15.2)
[2021-04-14 14:16] LABS: BUN/Creatinine Ratio 14; Blood Urea Nitrogen 19 mg/dL (9-20); Calcium 9.3 mg/dL (8.4-10.2); Hemolysis Index 4
[2021-04-14 15:29] LABS: Amphetamine Screen,Urine Negative; Benzodiazepines Screen,Urine Negative; Cannabinoid Screen,Urine Negative; Methadone Screen,Urine Negative; Opiate Screen,Urine Negative
[2021-04-14 15:41] LABS: Bacteria,Urine 1+ /HPF (Negative); Bilirubin,Urine NEG (Negative); Blood,Urine SM (Negative); Color,Urine Yellow (Yellow); Mucus,Urine 2+ /HPF
[2021-04-14 15:43] LABS: Cocaine Screen,Urine Positive
--- NOTE | 2021-04-14 16:53 | Emergency Department Report ---
ED General Adult HPI - General Chief complaint: Psych Stated complaint: SUICIDAL Time Seen by Provider: 04/14/21 16:05 Source: patient Mode of arrival: Ambulatory Limitations: No Limitations - History of Present Illness Initial comments: The patient presents to the emergency department with a chief complaint of not wanting to live for the last couple weeks. Patient has a history of depression and schizoaffective disorder. Patient states that he has had suicidal ideations for the last 2 weeks with a plan to stab himself to . Patient states he has not been on depression medications for greater than 4 months. Patient denies any auditory or visual hallucinations to me on exam. -: Gradual, week(s) Severity scale (0 -10): 0 Improves with: none Worsens with: none Associated Symptoms: denies other symptoms Treatments Prior to Arrival: none - Related Data Home Medications Medication Instructions Recorded Confirmed Last Taken ARIPiprazole [Abilify Maintena] 400 mg PO QMONTH 12/21/19 12/21/19 Unknown Previous Rx's Medication Instructions Recorded Last Taken Type Docusate Sodium [Colace CAP] 100 mg PO BID PRN #20 capsule 07/04/18 Unknown Rx Citalopram Hydrobromide 40 mg PO DAILY #30 12/27/19 Unknown Rx [Citalopram HBr] Doxepin [SINEquan] 25 mg PO QHS #30 capsule 12/27/19 Unknown Rx Trazodone HCl 150 mg PO QHS #30 12/27/19 Unknown Rx busPIRone [Buspar] 7.5 mg PO BID #60 tablet 12/27/19 Unknown Rx lamoTRIgine [LaMICtal] 25 mg PO BID #60 12/27/19 Unknown Rx polyethylene glycoL 3350 [Miralax 17 gm PO QDAY PRN #30 powd.pack 12/27/19 Unknown Rx 3350] predniSONE [Deltasone] 20 mg PO QDAY #30 tablet 12/27/19 Unknown Rx Compression Socks, Medium 1 each MC Q12H PRN #1 each 11/11/20 Unknown Rx [Compression Socks] Furosemide [Lasix] 20 mg PO QDAY #3 tablet 11/11/20 Unknown Rx Allergies Allergy/AdvReac Type Severity Reaction Status Date / Time No Known Allergies Allergy Verified 11/11/20 17:37 ED Review of Systems ROS: Stated complaint: SUICIDAL Other details as noted in HPI Comment: All other systems reviewed and negative Constitutional: denies: chills, fever Eyes: denies: eye pain, eye discharge, vision change ENT: denies: ear pain, throat pain Respiratory: denies: cough, shortness of breath, wheezing Cardiovascular: denies: chest pain, palpitations Endocrine: no symptoms reported Gastrointestinal: denies: abdominal pain, nausea, diarrhea Genitourinary: denies: urgency, dysuria Musculoskeletal: denies: back pain, joint swelling, arthralgia Skin: denies: rash, lesions Neurological: denies: headache, weakness, paresthesias Psychiatric: suicidal thoughts. denies: anxiety, depression, auditory hallucinations, visual hallucinations, homicidal thoughts Hematological/Lymphatic: denies: easy bleeding, easy bruising ED Past Medical Hx - Past Medical History Previous Medical History?: Yes Hx Hypertension: Yes Hx Congestive Heart Failure: No Hx Diabetes: No Hx Psychiatric Treatment: Yes (SCHIZO-EFFECTIVE) Hx Asthma: No Hx COPD: No Hx HIV: No Additional medical history: BPH - Social History Smoking Status: Current Every Day Smoker Substance Use Type: Cocaine, Marijuana - Medications Home Medications: Home Medications Medication Instructions Recorded Confirmed Last Taken Type Docusate Sodium [Colace CAP] 100 mg PO BID PRN #20 capsule 07/04/18 12/21/19 Unknown Rx ARIPiprazole [Abilify Maintena] 400 mg PO QMONTH 12/21/19 12/21/19 Unknown History Citalopram Hydrobromide 40 mg PO DAILY #30 12/27/19 Unknown Rx [Citalopram HBr] Doxepin [SINEquan] 25 mg PO QHS #30 capsule 12/27/19 Unknown Rx Trazodone HCl 150 mg PO QHS #30 12/27/19 Unknown Rx busPIRone [Buspar] 7.5 mg PO BID #60 tablet 12/27/19 Unknown Rx lamoTRIgine [LaMICtal] 25 mg PO BID #60 12/27/19 Unknown Rx polyethylene glycoL 3350 [Miralax 17 gm PO QDAY PRN #30 powd.pack 12/27/19 Unknown Rx 3350] predniSONE [Deltasone] 20 mg PO QDAY #30 tablet 12/27/19 Unknown Rx Compression Socks, Medium 1 each MC Q12H PRN #1 each 11/11/20 Unknown Rx [Compression Socks] Furosemide [Lasix] 20 mg PO QDAY #3 tablet 11/11/20 Unknown Rx ED Physical Exam - General Limitations: No Limitations General appearance: alert, in no apparent distress - Head Head exam: Present: atraumatic, normocephalic - Eye Eye exam: Present: normal appearance - ENT ENT exam: Present: mucous membranes moist - Neck Neck exam: Present: normal inspection - Respiratory Respiratory exam: Present: normal lung sounds bilaterally. Absent: respiratory distress - Cardiovascular Cardiovascular Exam: Present: regular rate, normal rhythm. Absent: systolic mur mur, diastolic murmur, rubs, gallop - GI/Abdominal GI/Abdominal exam: Present: soft, normal bowel sounds. Absent: distended, tenderness - Rectal Rectal exam: Present: deferred - Extremities Exam Extremities exam: Present: normal inspection - Back Exam Back exam: Present: normal inspection - Neurological Exam Neurological exam: Present: alert, oriented X3, CN II-XII intact. Absent: motor sensory deficit - Psychiatric Psychiatric exam: Present: normal affect, normal mood - Skin Skin exam: Present: warm, dry, intact, normal color. Absent: rash ED Course Vital Signs 04/14/21 04/14/21 13:19 19:17 Temperature 98.7 F 98.5 F Pulse Rate 91 H 90 Respiratory 16 18 Rate Blood Pressure 120/79 121/83 [Right] O2 Sat by Pulse 98 99 Oximetry ED Medical Decision Making - Lab Data Result diagrams: 04/14/21 13:31 04/14/21 13:31 Lab Results 04/14/21 04/14/21 04/14/21 Range/Units 13:31 13:31 13:31 WBC (4.5-11.0) K/mm3 RBC (3.65-5.03) M/mm3 Hgb (11.8-15.2) gm/dl Hct (35.5-45.6) % MCV (84-94) fl MCH (28-32) pg MCHC (32-34) % RDW (13.2-15.2) % Plt Count (140-440) K/mm3 Lymph % (Auto) (13.4-35.0) % [place] % (Auto) (0.0-7.3) % Eos % (Auto) (0.0-4.3) % Baso % (Auto) (0.0-1.8) % Lymph # (Auto) (1.2-5.4) K/mm3 [place] # (Auto) (0.0-0.8) K/mm3 Eos # (Auto) (0.0-0.4) K/mm3 Baso # (Auto) (0.0-0.1) K/mm3 Seg Neutrophils % (40.0-70.0) % Seg Neutrophils # (1.8-7.7) K/mm3 Sodium 139 (137-145) mmol/L Potassium 3.6 (3.6-5.0) mmol/L Chloride 103.0 (98-107) mmol/L Carbon Dioxide 25 (22-30) mmol/L Anion Gap 15 mmol/L BUN 19 (9-20) mg/dL Creatinine 1.4 H (0.8-1.3) mg/dL Estimated GFR > 60 ml/min BUN/Creatinine Ratio 14 % Glucose 98 (75-100) mg/dL Calcium 9.3 (8.4-10.2) mg/dL Urine Color (Yellow) Urine Turbidity (Clear) Urine pH (5.0-7.0) Ur Specific [place] (1.003-1.030) Urine Protein (Negative) mg/dL Urine Glucose (UA) (Negative) mg/dL Urine Ketones (Negative) mg/dL Urine Blood (Negative) Urine Nitrite (Negative) Urine Bilirubin (Negative) Urine Urobilinogen (<2.0) mg/dL Ur Leukocyte Esterase (Negative) Urine WBC (Auto) (0.0-6.0) /HPF Urine RBC (Auto) (0.0-6.0) /HPF U Epithel Cells (Auto) (0-13.0) /HPF Urine Bacteria (Auto) (Negative) /HPF Urine Mucus /HPF Salicylates < 0.3 L (2.8-20.0) mg/dL Urine Opiates Screen Urine Methadone Screen Acetaminophen 5.0 L (10.0-30.0) ug/mL Ur Barbiturates Screen Ur Phencyclidine Scrn Ur Amphetamines Screen U Benzodiazepines Scrn Urine Cocaine Screen U Marijuana (THC) Screen Drugs of Abuse Note Plasma/Serum Alcohol (0-0.07) % 04/14/21 04/14/21 04/14/21 Range/Units 13:31 13:31 14:56 WBC 9.9 (4.5-11.0) K/mm3 RBC 4.11 (3.65-5.03) M/mm3 Hgb 13.1 (11.8-15.2) gm/dl Hct 37.9 (35.5-45.6) % MCV 92 (84-94) fl MCH 32 (28-32) pg MCHC 35 H (32-34) % RDW 16.3 H (13.2-15.2) % Plt Count 189 (140-440) K/mm3 Lymph % (Auto) 23.7 (13.4-35.0) % [place] % (Auto) 6.3 (0.0-7.3) % Eos % (Auto) 0.6 (0.0-4.3) % Baso % (Auto) 0.5 (0.0-1.8) % Lymph # (Auto) 2.3 (1.2-5.4) K/mm3 [place] # (Auto) 0.6 (0.0-0.8) K/mm3 Eos # (Auto) 0.1 (0.0-0.4) K/mm3 Baso # (Auto) 0.1 (0.0-0.1) K/mm3 Seg Neutrophils % 68.9 (40.0-70.0) % Seg Neutrophils # 6.8 (1.8-7.7) K/mm3 Sodium (137-145) mmol/L Potassium (3.6-5.0) mmol/L Chloride (98-107) mmol/L Carbon Dioxide (22-30) mmol/L Anion Gap mmol/L BUN (9-20) mg/dL Creatinine (0.8-1.3) mg/dL Estimated GFR ml/min BUN/Creatinine Ratio % Glucose (75-100) mg/dL Calcium (8.4-10.2) mg/dL Urine Color Yellow (Yellow) Urine Turbidity Clear (Clear) Urine pH 5.0 (5.0-7.0) Ur Specific [place] 1.021 (1.003-1.030) Urine Protein 30 mg/dl (Negative) mg/dL Urine Glucose (UA) Neg (Negative) mg/dL Urine Ketones Neg (Negative) mg/dL Urine Blood Sm (Negative) Urine Nitrite Neg (Negative) Urine Bilirubin Neg (Negative) Urine Urobilinogen 2.0 (<2.0) mg/dL Ur Leukocyte Esterase Neg (Negative) Urine WBC (Auto) 3.0 (0.0-6.0) /HPF Urine RBC (Auto) 10.0 (0.0-6.0) /HPF U Epithel Cells (Auto) < 1.0 (0-13.0) /HPF Urine Bacteria (Auto) 1+ (Negative) /HPF Urine Mucus 2+ /HPF Salicylates (2.8-20.0) mg/dL Urine Opiates Screen Urine Methadone Screen Acetaminophen (10.0-30.0) ug/mL Ur Barbiturates Screen Ur Phencyclidine Scrn Ur Amphetamines Screen U Benzodiazepines Scrn Urine Cocaine Screen U Marijuana (THC) Screen Drugs of Abuse Note Plasma/Serum Alcohol < 0.01 (0-0.07) % 04/14/21 Range/Units 14:56 WBC (4.5-11.0) K/mm3 RBC (3.65-5.03) M/mm3 Hgb (11.8-15.2) gm/dl Hct (35.5-45.6) % MCV (84-94) fl MCH (28-32) pg MCHC (32-34) % RDW (13.2-15.2) % Plt Count (140-440) K/mm3 Lymph % (Auto) (13.4-35.0) % [place] % (Auto) (0.0-7.3) % Eos % (Auto) (0.0-4.3) % Baso % (Auto) (0.0-1.8) % Lymph # (Auto) (1.2-5.4) K/mm3 [place] # (Auto) (0.0-0.8) K/mm3 Eos # (Auto) (0.0-0.4) K/mm3 Baso # (Auto) (0.0-0.1) K/mm3 Seg Neutrophils % (40.0-70.0) % Seg Neutrophils # (1.8-7.7) K/mm3 Sodium (137-145) mmol/L Potassium (3.6-5.0) mmol/L Chloride (98-107) mmol/L Carbon Dioxide (22-30) mmol/L Anion Gap mmol/L BUN (9-20) mg/dL Creatinine (0.8-1.3) mg/dL Estimated GFR ml/min BUN/Creatinine Ratio % Glucose (75-100) mg/dL Calcium (8.4-10.2) mg/dL Urine Color (Yellow) Urine Turbidity (Clear) Urine pH (5.0-7.0) Ur Specific [place] (1.003-1.030) Urine Protein (Negative) mg/dL Urine Glucose (UA) (Negative) mg/dL Urine Ketones (Negative) mg/dL Urine Blood (Negative) Urine Nitrite (Negative) Urine Bilirubin (Negative) Urine Urobilinogen (<2.0) mg/dL Ur Leukocyte Esterase (Negative) Urine WBC (Auto) (0.0-6.0) /HPF Urine RBC (Auto) (0.0-6.0) /HPF U Epithel Cells (Auto) (0-13.0) /HPF Urine Bacteria (Auto) (Negative) /HPF Urine Mucus /HPF Salicylates (2.8-20.0) mg/dL Urine Opiates Screen Negative Urine Methadone Screen Negative Acetaminophen (10.0-30.0) ug/mL Ur Barbiturates Screen Negative Ur Phencyclidine Scrn Negative Ur Amphetamines Screen Negative U Benzodiazepines Scrn Negative Urine Cocaine Screen Positive U Marijuana (THC) Screen Negative Drugs of Abuse Note Disclamer Plasma/Serum Alcohol (0-0.07) % - Medical Decision Making 1013 applied ED hold placed Medically cleared Critical care attestation.: If time is entered above; I have spent that time in minutes in the direct care of this critically ill patient, excluding procedure time. ED Disposition Clinical Impression: Suicidal ideation Disposition: DC/TX-65 PSY HOSP/PSY UNIT Is pt being admited?: No Does the pt Need Aspirin: No Condition: Stable Referrals: PRIMARY CARE, [Primary Care Provider] - 3-5 Days
[2021-04-15 07:56] VITALS: BP 108/74
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
--- NOTE | 2021-04-15 11:39 | Event Note ---
Date: 04/15/21 S: "Stuff keeps going through my mind." Patient states he has not taken any of his medication for any of his diagnoses in approximately 5 months. O: Vital signs stable; patient calm and cooperative A: Schizoaffective disorder P:1013; awaiting inpatient psychiatric placement
== END 2021-04-15 18:34 ==
LOC: ED 13:06
DX: R45.851 Suicidal ideations (principal); Z20.822 Contact with and (suspected) exposure to COVID-19; I10 Essential (primary) hypertension; F17.200 Nicotine dependence, unspecified, uncomplicated; F12.10 Cannabis abuse, uncomplicated; F14.10 Cocaine abuse, uncomplicated; Z79.899 Other long term (current) drug therapy
CPT/HCPCS: 36415; 80048; 80307; 80320; 81001; 85025; G0480; U0003

== ENCOUNTER 2021-04-15 15:35 | Inpatient (IN) | payer MEDICARE ==
[2021-04-15] MEDS: traZODone 50 MG TAB PO SCH (21:35)
[2021-04-15] MEDS: OMEGA-3 FATTY ACIDS/FISH OIL 1 GRAM CAP PO SCH (21:35)
[2021-04-15] MEDS: MELATONIN 5 MG TAB PO PRN (21:35)
--- NOTE | 2021-04-16 09:40 | History and Physical Report ---
GP History & Physical - History of Present Illness Date of admission: 04/15/21 Date of Examination: 04/16/21 Reason for Admission: Danger to self, Severe anxiety/depression History of Present Illness: Tr Camejo a 60y/o male patient who was admitted for SI and severe depression. During my interview with the patient he is a/o x 3. He makes poor eye contact. He verbalizes feeling "depressed, down and out and can't get it together." The patient verbalizes "crack" use. He says he has a history of schizophrenia and has been off his meds for about 4 months. PAST PSYCHIATRIC HISTORY Diagnoses: Bipolar schizophrenia Suicide attempts or Self-harm behavior: Yes Prior psychiatric hospitalizations: Yes Substance Abuse history: "crack" Previous psychiatric medications tried: Abilify Outpatient treatment: None reported PAST MEDICAL HISTORY: None reported Family Psychiatric History: None reported or documented SOCIAL HISTORY Marital Status: Single Living Arrangements: rommate Employment Status: Disabled SSI Access to guns/weapons: None reported Education: GED History of Abuse: None reported Legal History: Yes REVIEW OF SYSTEMS Constitutional: Negative for weight loss ENT: Negative for stridor Respiratory: Negative for cough or hemoptysis All other systems reviewed and are negative MENTAL STATUS EXAMINATION General Appearance and Behavior: Age appropriate, good hygiene, wearing appropriate clothes,, good eye contact Cooperation: Participating/engaged, but Guarded Psychomotor Behavior: Psychomotor normal Mood: depressed Affect and affective range: Congruent with stated mood Thought Process: illogical Thought Content: hopelessness, helplessness Speech: Normal rate, volume and rhythm Intellectual Functioning: Average Suicidal Ideation: SI Homicidal Ideation: Denies HI Hallucinations: Denies Delusions: None elicited Impulse Control: Impaired Insight and Judgment: Limited insight and judgment Memory: Normal Attention: Normal Orientation: Alert, oriented Assessment and Plan (1) MDD (major depressive disorder) Current Visit: Yes Status: Acute Treatment Plan Patient started on antidepressant Patient admitted for inpatient psychiatric evaluation, medication adjustment and close monitoring The patient's behavior, mood, sleep and appetite will be closely monitored. Patient enrolled in individual and group therapeutic sessions and encouraged to attend. Patient provided with a safe and structured environment. Patient's physical health needs will be addressed by the Hospitalist. Hospitalist Consulted Labs including CBC, CMP, Lipid profile and Hemoglobin A1C levels ordered for baseline reference Social Assessment will be completed and the Comfort Station Attendant will work with patient and family to ensure a suitable and safe disposition Medication adjustment will be made as clinically indicated Start Zoloft 25mg po daily Start Depakote DR 125mg po BID Start Abilify 5mg po dailly Usual Wellness [employer]/Preservation: - Start Trazodone 50 mg po QHS & 50 mg po QHS PRN between 10 PM & 2 AM for insomnia - Start Melatonin 5 mg po QHS to promote circadian rhythm - Start [place]-3 for brain health, reduce impulsivity, and as adjunctive treatment for mood disorder, continue upon discharge given overall benefits. - Start B1 prophylaxis with 200 mg po for 5 days The patient agreed on the treatment plan, understood the risk, benefit, alternative treatment, potential consequence of no treatment, and gave informed consent. Initial Certification Inpatient psych services: I certify that the inpatient psychiatric services are required for treatment that could reasonably be expected to improve the patient's condition. Estimated days: 7 Post hospital care: primary care provider, psychiatric provider Case staffed with Dr. Rodrigez Legal Status: Voluntary Reaction to Hospitalization: Accepting Medications and Allergies Allergies Allergy/AdvReac Type Severity Reaction Status Date / Time No Known Allergies Allergy Verified 04/15/21 10:33 Home Medications Medication Instructions Recorded Confirmed Last Taken Type Docusate Sodium [Colace CAP] 100 mg PO BID PRN #20 capsule 07/04/18 04/16/21 Unknown Rx ARIPiprazole [Abilify Maintena] 400 mg PO QMONTH 12/21/19 04/16/21 Unknown History polyethylene glycoL 3350 [Miralax 17 gm PO QDAY PRN #30 powd.pack 12/27/19 04/16/21 Unknown Rx 3350] ARIPiprazole [Abilify TAB] 5 mg PO QHS 04/16/21 04/16/21 Unknown History FLUoxetine [PROzac] 20 mg PO DAILY 04/16/21 04/16/21 Unknown History Quetiapine Fumarate [SEROquel] 600 mg PO QHS 04/16/21 04/16/21 Unknown History Trazodone HCl 100 mg PO QHS 04/16/21 04/16/21 Unknown History Active Meds: Active Medications Fish Oil (Crawford-3 Fatty Acids/Fish Oil 1 Gram Cap) 2,000 mg PO BID OC Last Admin: 04/15/21 21:35 Dose: 2,000 mg Documented by: Melatonin (Melatonin 5 Mg Tab) 5 mg PO QHS PRN PRN Reason: Sleep Last Admin: 04/15/21 21:35 Dose: 5 mg Documented by: Trazodone HCl (Trazodone 50 Mg Tab) 50 mg PO QHS OC Last Admin: 04/15/21 21:35 Dose: 50 mg Documented by: Physician Certification - Certification Statement Physician Certification Statement: This is an acknowledgement statement that TR TRIPLETT is a 60 year old M who requires inpatient psychiatric admission for treatment which could reasonably be expected to improve the patient's condition for Estimated period of time patient will need to remain in the hospital: [ ] Plan for post-hospital care: [ ]
[2021-04-16] MEDS ORDERED: SERTRALINE 25 MG TAB PO SCH (10:00)
--- NOTE | 2021-04-16 10:13 | Consultation ---
History of Present Illness - Reason for Consult Consult date: 04/16/21 Hypertension Requesting physician: PIETRO ESPOSITO - History of Present Illness Patient is 60 yo with history of schizophrenia, hypertension, BPH. He was admitted to Psych Unit because of depression with suicidal ideation. The Hospitalist service has been consulted for evaluation of hypertension. Currently denies chest pain. Denies shortness of breath. He is not on any hypertensives and is BP is currently normal. Past History Past Medical History: hypertension, other (schizophrenia) Past Surgical History: No surgical history Social history: smoking, other (Cocaine and marijuana use) Family history: other (Unknown) Medications and Allergies Allergies Allergy/AdvReac Type Severity Reaction Status Date / Time No Known Allergies Allergy Verified 04/15/21 10:33 Home Medications Medication Instructions Recorded Confirmed Last Taken Type Docusate Sodium [Colace CAP] 100 mg PO BID PRN #20 capsule 07/04/18 04/16/21 Unknown Rx ARIPiprazole [Abilify Maintena] 400 mg PO QMONTH 12/21/19 04/16/21 Unknown History polyethylene glycoL 3350 [Miralax 17 gm PO QDAY PRN #30 powd.pack 12/27/19 0 04/16/21 Unknown Rx 3350] ARIPiprazole [Abilify TAB] 5 mg PO QHS 04/16/21 04/16/21 Unknown History FLUoxetine [PROzac] 20 mg PO DAILY 04/16/21 04/16/21 Unknown History Quetiapine Fumarate [SEROquel] 600 mg PO QHS 04/16/21 04/16/21 Unknown History Trazodone HCl 100 mg PO QHS 04/16/21 04/16/21 Unknown History Active Meds: Active Medications Aripiprazole (Aripiprazole 5 Mg Tab) 5 mg PO QDAY [facility] Divalproex Sodium (Divalproex Dr 125 Mg Tab) 125 mg PO BID [facility] Fish Oil ([place]-3 Fatty Acids/Fish Oil 1 Gram Cap) 2,000 mg PO BID [facility] Last Admin: 04/15/21 21:35 Dose: 2,000 mg Documented by: Melatonin (Melatonin 5 Mg Tab) 5 mg PO QHS PRN PRN Reason: Sleep Last Admin: 04/15/21 21:35 Dose: 5 mg Documented by: Sertraline HCl (Sertraline 25 Mg Tab) 25 mg PO QDAY [facility] Trazodone HCl (Trazodone 50 Mg Tab) 50 mg PO QHS [facility] Last Admin: 04/15/21 21:35 Dose: 50 mg Documented by: Review of Systems All systems: negative (No fever, no chest pain. All systems reviewed and are negative.) Exam - Physical Exam Narrative exam: Gen: Not in acute distress, lying in bed Neck:supple, no JVD Lungs:Clear to auscultation, no rales, no wheeze Heart:S1 and S2 reg, no murmurs, rubs, or gallop Abd:soft, non tender, non distended, normal bowel sounds Ext: No edema, no clubbing, no cyanosis Neuro:AAO X 3, no focal signs Psych: Depressed Results - Labs CBC & Chem 7: 04/16/21 10:14 04/16/21 10:14 Assessment and Plan Major depressive disorder. Patient admitted to Psych floor Psychaiatrist managing Hypertension Patient has history of hypertension from medical records Currently BP normal Will monitor. May start anti-hypertensive if SBP more than 140 or DBP more than 90 persistently Malnutrition His BMI is 15.6. Recommend dietary evaluation Thanks for consulting us, Dr. Norwood. Will follow.
[2021-04-16 10:39] LABS: Basophils % (Auto) 0.9 % (0.0-1.8); Eosinophils # (Auto) 0.1 K/mm3 (0.0-0.4); Eosinophils % (Auto) 2.2 % (0.0-4.3); Hematocrit 37.5 % (35.5-45.6); Hemoglobin 12.6 gm/dl (11.8-15.2); Lymphocytes # (Auto) 1.6 K/mm3 (1.2-5.4); Mean Corpuscular HGB Conc 34 % (32-34); Mean Corpuscular Volume 93 fl (84-94); Monocytes # (Auto) 0.4 K/mm3 (0.0-0.8); Platelet Count 178 K/mm3 (140-440); Red Blood Count 4.01 M/mm3 (3.65-5.03); Red Cell Distribution Width 15.8 % (13.2-15.2)
[2021-04-16] MEDS: OMEGA-3 FATTY ACIDS/FISH OIL 1 GRAM CAP PO SCH ×2 (10:41→21:15)
[2021-04-16] MEDS: ARIPiprazole 5 MG TAB PO SCH (10:41)
[2021-04-16] MEDS: DIVALPROEX DR 125 MG TAB PO SCH ×2 (10:41→21:15)
[2021-04-16 10:52] LABS: Alanine Aminotransferase 7 units/L (7-56); Albumin 3.9 g/dL (3.9-5); BUN/Creatinine Ratio 15; Blood Urea Nitrogen 18 mg/dL (9-20); Calcium 8.6 mg/dL (8.4-10.2); Chol/HDL Ratio 2.32 %; HDL Cholesterol 58 mg/dL (40-59); Hemolysis Index 2; LDL Cholesterol,Direct 76 mg/dL (50-130)
[2021-04-16] MEDS ORDERED: DOCUSATE SODIUM 100 MG CAP PO PRN (13:05)
[2021-04-16] MEDS ORDERED: POLYETHYLENE GLYCOL 3350 17 GM POWDER PO PRN (13:05)
[2021-04-16] MEDS ORDERED: ARIPIPRAZOLE 400 MG PO SCH (13:15)
[2021-04-16] MEDS: traZODone 50 MG TAB PO SCH (21:15)
--- NOTE | 2021-04-17 08:49 | Progress Note ---
Subjective - Reason for Consult Consult date: 04/17/21 Reason for consult: MDD - Chief Complaint Chief complaint: The patient was seen today. He says he's "not doing well." He still endorses SI and hearing voices telling him he's no good and that he "should have ended it." REVIEW OF SYSTEMS Constitutional: Negative for weight loss ENT: Negative for stridor Respiratory: Negative for cough or hemoptysis All other systems reviewed and are negative MENTAL STATUS EXAMINATION General Appearance and Behavior: Age appropriate, good hygiene, wearing appropriate clothes,, good eye contact Cooperation: Participating/engaged, but Guarded Psychomotor Behavior: Psychomotor normal Mood: depressed Affect and affective range: Congruent with stated mood Thought Process: illogical Thought Content: hopelessness, helplessness Speech: Normal rate, volume and rhythm Intellectual Functioning: Average Suicidal Ideation: SI Homicidal Ideation: Denies HI Hallucinations: Denies Delusions: None elicited Impulse Control: Impaired Insight and Judgment: Limited insight and judgment Memory: Normal Attention: Normal Orientation: Alert, oriented Assessment and Plan (1) MDD (major depressive disorder) Current Visit: Yes Status: Acute Treatment Plan Patient started on antidepressant Patient admitted for inpatient psychiatric evaluation, medication adjustment and close monitoring The patient's behavior, mood, sleep and appetite will be closely monitored. Patient enrolled in individual and group therapeutic sessions and encouraged to attend. Patient provided with a safe and structured environment. Patient's physical health needs will be addressed by the Hospitalist. Hospitalist Consulted Labs including CBC, CMP, Lipid profile and Hemoglobin A1C levels ordered for baseline reference Social Assessment will be completed and the Card Clothier will work with patient and family to ensure a suitable and safe disposition Medication adjustment will be made as clinically indicated Increased Prozac 30mg po daily Continue Depakote DR 125mg po BID Continue Abilify 5mg po dailly Usual Wellness Hindu/Preservation: - Start Trazodone 50 mg po QHS & 50 mg po QHS PRN between 10 PM & 2 AM for insomnia - Start Melatonin 5 mg po QHS to promote circadian rhythm - Start [place]-3 for brain health, reduce impulsivity, and as adjunctive treatment for mood disorder, continue upon discharge given overall benefits. - Start B1 prophylaxis with 200 mg po for 5 days The patient agreed on the treatment plan, understood the risk, benefit, alternative treatment, potential consequence of no treatment, and gave informed consent. Initial Certification Inpatient psych services: I certify that the inpatient psychiatric services are required for treatment that could reasonably be expected to improve the patient's condition. Estimated days: 7 Post hospital care: primary care provider, psychiatric provider Case staffed with Dr. Rodrigez Mental Status Exam - Vital signs Last Vital Signs Temp 96.8 F L 04/16/21 10:00 Pulse 77 04/16/21 10:00 Resp 18 04/16/21 10:00 BP 105/74 04/16/21 10:00 Pulse Ox 99 04/16/21 10:00
[2021-04-17] MEDS ORDERED: FLUoxetine 20 MG CAP PO SCH (10:00)
[2021-04-17] MEDS: ARIPiprazole 5 MG TAB PO SCH (10:25)
[2021-04-17] MEDS: FLUoxetine 10 MG TAB PO SCH (10:26)
[2021-04-17] MEDS: DIVALPROEX DR 125 MG TAB PO SCH ×2 (10:26→21:38)
[2021-04-17] MEDS: OMEGA-3 FATTY ACIDS/FISH OIL 1 GRAM CAP PO SCH ×2 (10:26→21:38)
[2021-04-17] MEDS: traZODone 50 MG TAB PO SCH (21:38)
[2021-04-17] MEDS: MELATONIN 5 MG TAB PO PRN (21:38)
--- NOTE | 2021-04-18 09:00 | Progress Note ---
Subjective Date of service: 04/18/21 Principal diagnosis: SI Subjective Comment: The patient was seen today, he is sitting in the dayroom. The patient says he's not feeling good. He says he still feels "a little suicidal and hearing voices." The patient denies the voices being threatening in nature. He says "I do feel a little better though." REVIEW OF SYSTEMS Constitutional: Negative for weight loss ENT: Negative for stridor Respiratory: Negative for cough or hemoptysis All other systems reviewed and are negative MENTAL STATUS EXAMINATION General Appearance and Behavior: Age appropriate, good hygiene, wearing appropriate clothes,, good eye contact Cooperation: Participating/engaged, but Guarded Psychomotor Behavior: Psychomotor normal Mood: depressed Affect and affective range: Congruent with stated mood Thought Process: illogical Thought Content: hopelessness, helplessness Speech: Normal rate, volume and rhythm Intellectual Functioning: Average Suicidal Ideation: SI Homicidal Ideation: Denies HI Hallucinations: Denies Delusions: None elicited Impulse Control: Impaired Insight and Judgment: Limited insight and judgment Memory: Normal Attention: Normal Orientation: Alert, oriented Assessment and Plan (1) MDD (major depressive disorder) Current Visit: Yes Status: Acute Treatment Plan Patient started on antidepressant Patient admitted for inpatient psychiatric evaluation, medication adjustment and close monitoring The patient's behavior, mood, sleep and appetite will be closely monitored. Patient enrolled in individual and group therapeutic sessions and encouraged to attend. Patient provided with a safe and structured environment. Patient's physical health needs will be addressed by the Hospitalist. Hospitalist Consulted Labs including CBC, CMP, Lipid profile and Hemoglobin A1C levels ordered for baseline reference Social Assessment will be completed and the Meat Manager will work with alfonso ent and family to ensure a suitable and safe disposition Medication adjustment will be made as clinically indicated Continue Prozac 30mg po daily Increase Depakote DR 250mg po BID Continue Abilify 5mg po dailly Usual Wellness Sikh/Preservation: - Start Trazodone 50 mg po QHS & 50 mg po QHS PRN between 10 PM & 2 AM for insomnia - Start Melatonin 5 mg po QHS to promote circadian rhythm - Start [place]-3 for brain health, reduce impulsivity, and as adjunctive treatment for mood disorder, continue upon discharge given overall benefits. - Start B1 prophylaxis with 200 mg po for 5 days The patient agreed on the treatment plan, understood the risk, benefit, alternative treatment, potential consequence of no treatment, and gave informed consent. Estimated days: 5 Post hospital care: primary care provider, psychiatric provider Case staffed with Dr. Rodrigez Medications and Allergies Allergies Allergy/AdvReac Type Severity Reaction Status Date / Time No Known Allergies Allergy Verified 04/15/21 10:33 Home Medications Medication Instructions Recorded Confirmed Last Taken Type Docusate Sodium [Colace CAP] 100 mg PO BID PRN #20 capsule 07/04/18 04/16/21 Unknown Rx ARIPiprazole [Abilify Maintena] 400 mg PO QMONTH 12/21/19 04/16/21 Unknown History polyethylene glycoL 3350 [Miralax 17 gm PO QDAY PRN #30 powd.pack 12/27/19 04/16/21 Unknown Rx 3350] ARIPiprazole [Abilify TAB] 5 mg PO QHS 04/16/21 04/16/21 Unknown History FLUoxetine [PROzac] 20 mg PO DAILY 04/16/21 04/16/21 Unknown History Quetiapine Fumarate [SEROquel] 600 mg PO QHS 04/16/21 04/16/21 Unknown History Trazodone HCl 100 mg PO QHS 04/16/21 04/16/21 Unknown History Active Meds: Active Medications Aripiprazole (Aripiprazole 5 Mg Tab) 5 mg PO QDAY [facility] Last Admin: 04/17/21 10:25 Dose: 5 mg Documented by: Divalproex Sodium (Divalproex Dr 125 Mg Tab) 125 mg PO BID [facility] Last Admin: 04/17/21 21:38 Dose: 125 mg Documented by: Docusate Sodium (Docusate Sodium 100 Mg Cap) 100 mg PO BID PRN PRN Reason: Constipation Fish Oil ([place]-3 Fatty Acids/Fish Oil 1 Gram Cap) 2,000 mg PO BID [facility] Last Admin: 04/17/21 21:38 Dose: 2,000 mg Documented by: Fluoxetine HCl (Fluoxetine 10 Mg Tab) 30 mg PO QDAY [facility] Last Admin: 04/17/21 10:26 Dose: 30 mg Documented by: Melatonin (Melatonin 5 Mg Tab) 5 mg PO QHS PRN PRN Reason: Sleep Last Admin: 04/17/21 21:38 Dose: 5 mg Documented by: Miscellaneous Medication (Aripiprazole [Abilify Maintena]) 400 mg PO QMONTH [facility] Polyethylene Glycol (Polyethylene Glycol 3350 17 Gm Powder) 17 gm PO QDAY PRN PRN Reason: Constipation Trazodone HCl (Trazodone 50 Mg Tab) 50 mg PO QHS [facility] Last Admin: 04/17/21 21:38 Dose: 50 mg Documented by: Results - Results Labs/Vitals: Laboratory Last Values WBC 4.1 K/mm3 (4.5-11.0) L 04/16/21 10:14 RBC 4.01 M/mm3 (3.65-5.03) 04/16/21 10:14 Hgb 12.6 gm/dl (11.8-15.2) 04/16/21 10:14 Hct 37.5 % (35.5-45.6) 04/16/21 10:14 MCV 93 fl (84-94) 04/16/21 10:14 MCH 31 pg (28-32) 04/16/21 10:14 MCHC 34 % (32-34) 04/16/21 10:14 RDW 15.8 % (13.2-15.2) H 04/16/21 10:14 Plt Count 178 K/mm3 (140-440) 04/16/21 10:14 Lymph % (Auto) 38.0 % (13.4-35.0) H 04/16/21 10:14 [place] % (Auto) 10.0 % (0.0-7.3) H 04/16/21 10:14 Eos % (Auto) 2.2 % (0.0-4.3) 04/16/21 10:14 Baso % (Auto) 0.9 % (0.0-1.8) 04/16/21 10:14 Lymph # (Auto) 1.6 K/mm3 (1.2-5.4) 04/16/21 10:14 [place] # (Auto) 0.4 K/mm3 (0.0-0.8) 04/16/21 10:14 Eos # (Auto) 0.1 K/mm3 (0.0-0.4) 04/16/21 10:14 Baso # (Auto) 0.0 K/mm3 (0.0-0.1) 04/16/21 10:14 Seg Neutrophils % 48.9 % (40.0-70.0) 04/16/21 10:14 Seg Neutrophils # 2.0 K/mm3 (1.8-7.7) 04/16/21 10:14 Sodium 138 mmol/L (137-145) 04/16/21 10:14 Potassium 4.4 mmol/L (3.6-5.0) D 04/16/21 10:14 Chloride 104.4 mmol/L (98-107) 04/16/21 10:14 Carbon Dioxide 27 mmol/L (22-30) 04/16/21 10:14 Anion Gap 11 mmol/L 04/16/21 10:14 BUN 18 mg/dL (9-20) 04/16/21 10:14 Creatinine 1.2 mg/dL (0.8-1.3) 04/16/21 10:14 Estimated GFR > 60 ml/min 04/16/21 10:14 BUN/Creatinine Ratio 15 % 04/16/21 10:14 Glucose 63 mg/dL (75-100) L 04/16/21 10:14 Hemoglobin A1c 4.9 % (4-6) 04/16/21 10:14 Calcium 8.6 mg/dL (8.4-10.2) 04/16/21 10:14 Total Bilirubin 1.40 mg/dL (0.1-1.2) H 04/16/21 10:14 AST 17 units/L (5-40) 04/16/21 10:14 ALT 7 units/L (7-56) 04/16/21 10:14 Alkaline Phosphatase 49 units/L (35-129) 04/16/21 10:14 Total Protein 6.6 g/dL (6.3-8.2) 04/16/21 10:14 Albumin 3.9 g/dL (3.9-5) 04/16/21 10:14 Albumin/Globulin Ratio 1.4 % 04/16/21 10:14 Triglycerides 84 mg/dL (2-149) 04/16/21 10:14 Cholesterol 135 mg/dL (50-199) 04/16/21 10:14 LDL Cholesterol Direct 76 mg/dL (50-130) 04/16/21 10:14 HDL Cholesterol 58 mg/dL (40-59) 04/16/21 10:14 Cholesterol/HDL Ratio 2.32 % 04/16/21 10:14 TSH 0.906 mlU/mL (0.270-4.200) 04/16/21 10:14 Last Vital Signs Temp 97.5 F L 04/18/21 08:55 Pulse 78 04/18/21 08:55 Resp 12 04/18/21 08:55 BP 120/91 04/18/21 08:55 Pulse Ox 99 04/18/21 08:55
[2021-04-18] MEDS: ARIPiprazole 5 MG TAB PO SCH (09:20)
[2021-04-18] MEDS: FLUoxetine 10 MG TAB PO SCH (09:20)
[2021-04-18] MEDS: OMEGA-3 FATTY ACIDS/FISH OIL 1 GRAM CAP PO SCH ×2 (09:21→21:24)
[2021-04-18] MEDS: DIVALPROEX DR 250 MG TAB PO SCH ×2 (10:47→21:24)
[2021-04-18] MEDS: traZODone 50 MG TAB PO SCH (21:24)
--- NOTE | 2021-04-19 08:47 | Progress Note ---
Subjective Date of service: 04/19/21 Principal diagnosis: SI Subjective Comment: The patient was seen today, he is sitting in the dayroom. The patient is rocking back and forth. He is fidgety. He still endorses SI, and auditory hallucinations "a little bit." He says voices "that are mumbling." REVIEW OF SYSTEMS Constitutional: Negative for weight loss ENT: Negative for stridor Respiratory: Negative for cough or hemoptysis All other systems reviewed and are negative MENTAL STATUS EXAMINATION General Appearance and Behavior: Age appropriate, good hygiene, wearing appropriate clothes, fair eye contact Cooperation: Participating/engaged, but Guarded Psychomotor Behavior: fidgety Mood: "not too good" Affect and affective range: Congruent with stated mood Thought Process: illogical Thought Content: hallucinations, SI Speech: Normal rate, volume and rhythm Intellectual Functioning: Average Suicidal Ideation: SI Homicidal Ideation: Denies HI Hallucinations: Auditory Delusions: None elicited Impulse Control: Impaired Insight and Judgment: Limited insight and judgment Memory: Normal Attention: Normal Orientation: Alert, oriented Assessment and Plan (1) MDD (major depressive disorder) Current Visit: Yes Status: Acute Treatment Plan Patient started on antidepressant Patient admitted for inpatient psychiatric evaluation, medication adjustment and close monitoring The patient's behavior, mood, sleep and appetite will be closely monitored. Patient enrolled in individual and group therapeutic sessions and encouraged to attend. Patient provided with a safe and structured environment. Patient's physical health needs will be addressed by the Hospitalist. Hospitalist Consulted Labs including CBC, CMP, Lipid profile and Hemoglobin A1C levels ordered for baseline reference Social Assessment will be completed and the Welder Metal Fab will work with patient and family to ensure a suitable and safe disposition Medication adjustment will be made as clinically indicated Increase Prozac 40mg po daily Continue Depakote DR 250mg po BID Increase Abilify 10mg po dailly Usual Wellness Oriental Orthodox/Preservation: - Start Trazodone 50 mg po QHS & 50 mg po QHS PRN between 10 PM & 2 AM for insomnia - Start Melatonin 5 mg po QHS to promote circadian rhythm - Start [place]-3 for brain health, reduce impulsivity, and as adjunctive treatment for mood disorder, continue upon discharge given overall benefits. - Start B1 prophylaxis with 200 mg po for 5 days The patient agreed on the treatment plan, understood the risk, benefit, alternative treatment, potential consequence of no treatment, and gave informed consent. Estimated days: 3 Post hospital care: primary care provider, psychiatric provider Case staffed with Dr. Rodrigez Medications and Allergies Allergies Allergy/AdvReac Type Severity Reaction Status Date / Time No Known Allergies Allergy Verified 04/15/21 10:33 Home Medications Medication Instructions Recorded Confirmed Last Taken Type Docusate Sodium [Colace CAP] 100 mg PO BID PRN #20 capsule 07/04/18 04/16/21 Unknown Rx ARIPiprazole [Abilify Maintena] 400 mg PO QMONTH 12/21/19 04/16/21 Unknown History polyethylene glycoL 3350 [Miralax 17 gm PO QDAY PRN #30 powd.pack 12/27/19 04/16/21 Unknown Rx 3350] ARIPiprazole [Abilify TAB] 5 mg PO QHS 04/16/21 04/16/21 Unknown History FLUoxetine [PROzac] 20 mg PO DAILY 04/16/21 04/16/21 Unknown History Quetiapine Fumarate [SEROquel] 600 mg PO QHS 04/16/21 04/16/21 Unknown History Trazodone HCl 100 mg PO QHS 04/16/21 04/16/21 Unknown History Active Meds: Active Medications Aripiprazole (Aripiprazole 5 Mg Tab) 5 mg PO QDAY [facility] Last Admin: 04/18/21 09:20 Dose: 5 mg Documented by: Divalproex Sodium (Divalproex Dr 250 Mg Tab) 250 mg PO BID [facility] Last Admin: 04/18/21 21:24 Dose: 250 mg Documented by: Docusate Sodium (Docusate Sodium 100 Mg Cap) 100 mg PO BID PRN PRN Reason: Constipation Fish Oil ([place]-3 Fatty Acids/Fish Oil 1 Gram Cap) 2,000 mg PO BID [facility] Last Admin: 04/18/21 21:24 Dose: 2,000 mg Documented by: Fluoxetine HCl (Fluoxetine 10 Mg Tab) 30 mg PO QDAY [facility] Last Admin: 04/18/21 09:20 Dose: 30 mg Documented by: Melatonin (Melatonin 5 Mg Tab) 5 mg PO QHS PRN PRN Reason: Sleep Last Admin: 04/17/21 21:38 Dose: 5 mg Documented by: Miscellaneous Medication (Aripiprazole [Abilify Maintena]) 400 mg PO QMONTH [facility] Polyethylene Glycol (Polyethylene Glycol 3350 17 Gm Powder) 17 gm PO QDAY PRN PRN Reason: Constipation Trazodone HCl (Trazodone 50 Mg Tab) 50 mg PO QHS [facility] Last Admin: 04/18/21 21:24 Dose: 50 mg Documented by: Results - Results Labs/Vitals: Laboratory Last Values WBC 4.1 K/mm3 (4.5-11.0) L 04/16/21 10:14 RBC 4.01 M/mm3 (3.65-5.03) 04/16/21 10:14 Hgb 12.6 gm/dl (11.8-15.2) 04/16/21 10:14 Hct 37.5 % (35.5-45.6) 04/16/21 10:14 MCV 93 fl (84-94) 04/16/21 10:14 MCH 31 pg (28-32) 04/16/21 10:14 MCHC 34 % (32-34) 04/16/21 10:14 RDW 15.8 % (13.2-15.2) H 04/16/21 10:14 Plt Count 178 K/mm3 (140-440) 04/16/21 10:14 Lymph % (Auto) 38.0 % (13.4-35.0) H 04/16/21 10:14 [place] % (Auto) 10.0 % (0.0-7.3) H 04/16/21 10:14 Eos % (Auto) 2.2 % (0.0-4.3) 04/16/21 10:14 Baso % (Auto) 0.9 % (0.0-1.8) 04/16/21 10:14 Lymph # (Auto) 1.6 K/mm3 (1.2-5.4) 04/16/21 10:14 [place] # (Auto) 0.4 K/mm3 (0.0-0.8) 04/16/21 10:14 Eos # (Auto) 0.1 K/mm3 (0.0-0.4) 04/16/21 10:14 Baso # (Auto) 0.0 K/mm3 (0.0-0.1) 04/16/21 10:14 Seg Neutrophils % 48.9 % (40.0-70.0) 04/16/21 10:14 Seg Neutrophils # 2.0 K/mm3 (1.8-7.7) 04/16/21 10:14 Sodium 138 mmol/L (137-145) 04/16/21 10:14 Potassium 4.4 mmol/L (3.6-5.0) D 04/16/21 10:14 Chloride 104.4 mmol/L (98-107) 04/16/21 10:14 Carbon Dioxide 27 mmol/L (22-30) 04/16/21 10:14 Anion Gap 11 mmol/L 04/16/21 10:14 BUN 18 mg/dL (9-20) 04/16/21 10:14 Creatinine 1.2 mg/dL (0.8-1.3) 04/16/21 10:14 Estimated GFR > 60 ml/min 04/16/21 10:14 BUN/Creatinine Ratio 15 % 04/16/21 10:14 Glucose 63 mg/dL (75-100) L 04/16/21 10:14 Hemoglobin A1c 4.9 % (4-6) 04/16/21 10:14 Calcium 8.6 mg/dL (8.4-10.2) 04/16/21 10:14 Total Bilirubin 1.40 mg/dL (0.1-1.2) H 04/16/21 10:14 AST 17 units/L (5-40) 04/16/21 10:14 ALT 7 units/L (7-56) 04/16/21 10:14 Alkaline Phosphatase 49 units/L (35-129) 04/16/21 10:14 Total Protein 6.6 g/dL (6.3-8.2) 04/16/21 10:14 Albumin 3.9 g/dL (3.9-5) 04/16/21 10:14 Albumin/Globulin Ratio 1.4 % 04/16/21 10:14 Triglycerides 84 mg/dL (2-149) 04/16/21 10:14 Cholesterol 135 mg/dL (50-199) 04/16/21 10:14 LDL Cholesterol Direct 76 mg/dL (50-130) 04/16/21 10:14 HDL Cholesterol 58 mg/dL (40-59) 04/16/21 10:14 Cholesterol/HDL Ratio 2.32 % 04/16/21 10:14 TSH 0.906 mlU/mL (0.270-4.200) 04/16/21 10:14 Last Vital Signs Temp 98.4 F 04/19/21 08:10 Pulse 86 04/19/21 08:10 Resp 16 04/19/21 08:10 BP 118/86 04/19/21 08:10 Pulse Ox 97 04/18/21 19:23
[2021-04-19] MEDS ORDERED: ARIPiprazole 10 MG TAB PO SCH (10:00)
[2021-04-19] MEDS: DIVALPROEX DR 250 MG TAB PO SCH ×2 (10:23→21:10)
[2021-04-19] MEDS: OMEGA-3 FATTY ACIDS/FISH OIL 1 GRAM CAP PO SCH ×2 (10:23→21:10)
[2021-04-19] MEDS: FLUoxetine 20 MG CAP PO SCH (10:23)
[2021-04-19] MEDS: traZODone 50 MG TAB PO SCH (21:10)
--- NOTE | 2021-04-20 08:09 | Progress Note ---
Subjective Date of service: 04/20/21 Principal diagnosis: SI Subjective Comment: Per Nurse Note: Last evening the patient spent most of his time in the activity room. He had little interaction with his peers. He presents as sad and depressed. He denies si/hi/vh but admits to hearing muffled sounds. His appetite is good. He is medication compliant. Overnight the patient rested quietly. He presents as sleeping 8 hours. Will continue to monitor patient for safety. The patient was seen today, he is just done eating breakfast. He appears a little more calm today than yesterday. He says he's "doing better." The patient still endorses SI, but states "It's better." He denies having a plan. He also denies hallucinations of any kind. Reason for continued inpatient treatment: The patient has improved, but still presents as depressed and has passive suicidal thoughts. REVIEW OF SYSTEMS Constitutional: Negative for weight loss ENT: Negative for stridor Respiratory: Negative for cough or hemoptysis All other systems reviewed and are negative MENTAL STATUS EXAMINATION General Appearance and Behavior: Age appropriate, good hygiene, wearing appropriate clothes, fair eye contact Cooperation: Participating/engaged, but Guarded Psychomotor Behavior: fidgety Mood: "not too good" Affect and affective range: Congruent with stated mood Thought Process: illogical Thought Content: hallucinations, SI Speech: Normal rate, volume and rhythm Intellectual Functioning: Average Suicidal Ideation: SI Homicidal Ideation: Denies HI Hallucinations: Auditory Delusions: None elicited Impulse Control: Impaired Insight and Judgment: Limited insight and judgment Memory: Normal Attention: Normal Orientation: Alert, oriented Assessment and Plan (1) MDD (major depressive disorder) Current Visit: Yes Status: Acute Treatment Plan Patient started on antidepressant Patient admitted for inpatient psychiatric evaluation, medication adjustment and close monitoring The patient's behavior, mood, sleep and appetite will be closely monitored. Patient enrolled in individual and group therapeutic sessions and encouraged to attend. Patient provided with a safe and structured environment. Patient's physical health needs will be addressed by the Hospitalist. Hospitalist Consulted Labs including CBC, CMP, Lipid profile and Hemoglobin A1C levels ordered for baseline reference Social Assessment will be completed and the Schedule Clerk will work with patient and family to ensure a suitable and safe disposition Medication adjustment will be made as clinically indicated Increase Prozac 40mg po daily yesterday Continue Depakote DR 250mg po BID Increase Abilify 15mg po dailllenin Usual Wellness Taoism/Preservation: - Start Trazodone 50 mg po QHS & 50 mg po QHS PRN between 10 PM & 2 AM for insomnia - Start Melatonin 5 mg po QHS to promote circadian rhythm - Start [place]-3 for brain health, reduce impulsivity, and as adjunctive treatment for mood disorder, continue upon discharge given overall benefits. - Start B1 prophylaxis with 200 mg po for 5 days The patient agreed on the treatment plan, understood the risk, benefit, alternative treatment, potential consequence of no treatment, and gave informed consent. Estimated days: 1 Post hospital care: primary care provider, psychiatric provider Case staffed with Dr. Rodrigez Medications and Allergies Allergies Allergy/AdvReac Type Severity Reaction Status Date / Time No Known Allergies Allergy Verified 04/15/21 10:33 Home Medications Medication Instructions Recorded Confirmed Last Taken Type Docusate Sodium [Colace CAP] 100 mg PO BID PRN #20 capsule 07/04/18 04/16/21 Unknown Rx ARIPiprazole [Abilify Maintena] 400 mg PO QMONTH 12/21/19 04/16/21 Unknown History polyethylene glycoL 3350 [Miralax 17 gm PO QDAY PRN #30 powd.pack 12/27/19 04/16/21 Unknown Rx 3350] ARIPiprazole [Abilify TAB] 5 mg PO QHS 04/16/21 04/16/21 Unknown History FLUoxetine [PROzac] 20 mg PO DAILY 04/16/21 04/16/21 Unknown History Quetiapine Fumarate [SEROquel] 600 mg PO QHS 04/16/21 04/16/21 Unknown History Trazodone HCl 100 mg PO QHS 04/16/21 04/16/21 Unknown History Active Meds: Active Medications Aripiprazole (Aripiprazole 10 Mg Tab) 10 mg PO QDAY [facility] Last Admin: 04/19/21 10:23 Dose: 10 mg Documented by: Divalproex Sodium (Divalproex Dr 250 Mg Tab) 250 mg PO BID [facility] Last Admin: 04/19/21 21:10 Dose: 250 mg Documented by: Docusate Sodium (Docusate Sodium 100 Mg Cap) 100 mg PO BID PRN PRN Reason: Constipation Fish Oil ([place]-3 Fatty Acids/Fish Oil 1 Gram Cap) 2,000 mg PO BID [facility] Last Admin: 04/19/21 21:10 Dose: 2,000 mg Documented by: Fluoxetine HCl (Fluoxetine 20 Mg Cap) 40 mg PO QDAY [facility] Last Admin: 04/19/21 10:23 Dose: 40 mg Documented by: Melatonin (Melatonin 5 Mg Tab) 5 mg PO QHS PRN PRN Reason: Sleep Last Admin: 04/17/21 21:38 Dose: 5 mg Documented by: Miscellaneous Medication (Aripiprazole [Abilify Maintena]) 400 mg PO QMONTH OC Polyethylene Glycol (Polyethylene Glycol 3350 17 Gm Powder) 17 gm PO QDAY PRN PRN Reason: Constipation Trazodone HCl (Trazodone 50 Mg Tab) 50 mg PO QHS [facility] Last Admin: 04/19/21 21:10 Dose: 50 mg Documented by: Results - Results Labs/Vitals: Laboratory Last Values WBC 4.1 K/mm3 (4.5-11.0) L 04/16/21 10:14 RBC 4.01 M/mm3 (3.65-5.03) 04/16/21 10:14 Hgb 12.6 gm/dl (11.8-15.2) 04/16/21 10:14 Hct 37.5 % (35.5-45.6) 04/16/21 10:14 MCV 93 fl (84-94) 04/16/21 10:14 MCH 31 pg (28-32) 04/16/21 10:14 MCHC 34 % (32-34) 04/16/21 10:14 RDW 15.8 % (13.2-15.2) H 04/16/21 10:14 Plt Count 178 K/mm3 (140-440) 04/16/21 10:14 Lymph % (Auto) 38.0 % (13.4-35.0) H 04/16/21 10:14 [place] % (Auto) 10.0 % (0.0-7.3) H 04/16/21 10:14 Eos % (Auto) 2.2 % (0.0-4.3) 04/16/21 10:14 Baso % (Auto) 0.9 % (0.0-1.8) 04/16/21 10:14 Lymph # (Auto) 1.6 K/mm3 (1.2-5.4) 04/16/21 10:14 [place] # (Auto) 0.4 K/mm3 (0.0-0.8) 04/16/21 10:14 Eos # (Auto) 0.1 K/mm3 (0.0-0.4) 04/16/21 10:14 Baso # (Auto) 0.0 K/mm3 (0.0-0.1) 04/16/21 10:14 Seg Neutrophils % 48.9 % (40.0-70.0) 04/16/21 10:14 Seg Neutrophils # 2.0 K/mm3 (1.8-7.7) 04/16/21 10:14 Sodium 138 mmol/L (137-145) 04/16/21 10:14 Potassium 4.4 mmol/L (3.6-5.0) D 04/16/21 10:14 Chloride 104.4 mmol/L (98-107) 04/16/21 10:14 Carbon Dioxide 27 mmol/L (22-30) 04/16/21 10:14 Anion Gap 11 mmol/L 04/16/21 10:14 BUN 18 mg/dL (9-20) 04/16/21 10:14 Creatinine 1.2 mg/dL (0.8-1.3) 04/16/21 10:14 Estimated GFR > 60 ml/min 04/16/21 10:14 BUN/Creatinine Ratio 15 % 04/16/21 10:14 Glucose 63 mg/dL (75-100) L 04/16/21 10:14 Hemoglobin A1c 4.9 % (4-6) 04/16/21 10:14 Calcium 8.6 mg/dL (8.4-10.2) 04/16/21 10:14 Total Bilirubin 1.40 mg/dL (0.1-1.2) H 04/16/21 10:14 AST 17 units/L (5-40) 04/16/21 10:14 ALT 7 units/L (7-56) 04/16/21 10:14 Alkaline Phosphatase 49 units/L (35-129) 04/16/21 10:14 Total Protein 6.6 g/dL (6.3-8.2) 04/16/21 10:14 Albumin 3.9 g/dL (3.9-5) 04/16/21 10:14 Albumin/Globulin Ratio 1.4 % 04/16/21 10:14 Triglycerides 84 mg/dL (2-149) 04/16/21 10:14 Cholesterol 135 mg/dL (50-199) 04/16/21 10:14 LDL Cholesterol Direct 76 mg/dL (50-130) 04/16/21 10:14 HDL Cholesterol 58 mg/dL (40-59) 04/16/21 10:14 Cholesterol/HDL Ratio 2.32 % 04/16/21 10:14 TSH 0.906 mlU/mL (0.270-4.200) 04/16/21 10:14 Last Vital Signs Temp 98.0 F 04/19/21 19:17 Pulse 87 04/19/21 19:17 Resp 16 04/19/21 19:17 BP 110/76 04/19/21 19:17 Pulse Ox 97 04/19/21 19:17
[2021-04-20] MEDS: OMEGA-3 FATTY ACIDS/FISH OIL 1 GRAM CAP PO SCH ×2 (09:56→21:17)
[2021-04-20] MEDS: FLUoxetine 20 MG CAP PO SCH (09:56)
[2021-04-20] MEDS: DIVALPROEX DR 250 MG TAB PO SCH ×2 (09:57→21:17)
[2021-04-20] MEDS: ARIPiprazole 15 MG TAB PO SCH (09:58)
[2021-04-20] MEDS: traZODone 50 MG TAB PO SCH (21:17)
--- NOTE | 2021-04-21 09:15 | Discharge Summary ---
Providers - Providers Date of Admission: 04/15/21 19:20 Date of discharge: 04/21/21 Attending physician: PIETRO ESPOSITO MD 04/15/21 15:58 Consult to Physician [CONS] Routine Comment: Consulting Provider: FLORINDA LOMAS Physician Instructions: Reason For Exam: Med mngnt Primary care physician: RETAIL PHARMACIST Hospitalization Reason for admission: depressed, SI Admitting Diagnosis: F33.3 - MAJOR DEPRESSV DISORDER, RECURRENT, SEVERE W PSYCH SYMPTOMS Condition: Stable Hospital course: The patient was provided inpatient psychiatric treatment with safe and supportive care, medication adjustment, adverse effect monitoring, medical evaluations, medical treatments, assessment and psycho-education. The patient's mood, cognition, behavior, moral support are improved and stabilized. St the time of discharge, the patient had no endangering behavior and no debilitating adverse effects. The patient agreed on potential consequences of no treatment and gave informed consent. Disposition: DC- TO HOME OR SELFCARE Time spent for discharge: 35 Allergies/Adverse Reactions: Allergies No Known Allergies Allergy (Verified 04/15/21 10:33) Vital Signs: Last Vital Signs Temp 97.5 F L 04/21/21 08:15 Pulse 80 04/21/21 08:15 Resp 16 04/21/21 08:15 BP 112/78 04/21/21 08:15 Pulse Ox 97 04/21/21 08:15 Last Lab: Laboratory Last Values WBC 4.1 K/mm3 (4.5-11.0) L 04/16/21 10:14 RBC 4.01 M/mm3 (3.65-5.03) 04/16/21 10:14 Hgb 12.6 gm/dl (11.8-15.2) 04/16/21 10:14 Hct 37.5 % (35.5-45.6) 04/16/21 10:14 MCV 93 fl (84-94) 04/16/21 10:14 MCH 31 pg (28-32) 04/16/21 10:14 MCHC 34 % (32-34) 04/16/21 10:14 RDW 15.8 % (13.2-15.2) H 04/16/21 10:14 Plt Count 178 K/mm3 (140-440) 04/16/21 10:14 Lymph % (Auto) 38.0 % (13.4-35.0) H 04/16/21 10:14 [place] % (Auto) 10.0 % (0.0-7.3) H 04/16/21 10:14 Eos % (Auto) 2.2 % (0.0-4.3) 04/16/21 10:14 Baso % (Auto) 0.9 % (0.0-1.8) 04/16/21 10:14 Lymph # (Auto) 1.6 K/mm3 (1.2-5.4) 04/16/21 10:14 [place] # (Auto) 0.4 K/mm3 (0.0-0.8) 04/16/21 10:14 Eos # (Auto) 0.1 K/mm3 (0.0-0.4) 04/16/21 10:14 Baso # (Auto) 0.0 K/mm3 (0.0-0.1) 04/16/21 10:14 Seg Neutrophils % 48.9 % (40.0-70.0) 04/16/21 10:14 Seg Neutrophils # 2.0 K/mm3 (1.8-7.7) 04/16/21 10:14 Sodium 138 mmol/L (137-145) 04/16/21 10:14 Potassium 4.4 mmol/L (3.6-5.0) D 04/16/21 10:14 Chloride 104.4 mmol/L (98-107) 04/16/21 10:14 Carbon Dioxide 27 mmol/L (22-30) 04/16/21 10:14 Anion Gap 11 mmol/L 04/16/21 10:14 BUN 18 mg/dL (9-20) 04/16/21 10:14 Creatinine 1.2 mg/dL (0.8-1.3) 04/16/21 10:14 Estimated GFR > 60 ml/min 04/16/21 10:14 BUN/Creatinine Ratio 15 % 04/16/21 10:14 Glucose 63 mg/dL (75-100) L 04/16/21 10:14 Hemoglobin A1c 4.9 % (4-6) 04/16/21 10:14 Calcium 8.6 mg/dL (8.4-10.2) 04/16/21 10:14 Total Bilirubin 1.40 mg/dL (0.1-1.2) H 04/16/21 10:14 AST 17 units/L (5-40) 04/16/21 10:14 ALT 7 units/L (7-56) 04/16/21 10:14 Alkaline Phosphatase 49 units/L (35-129) 04/16/21 10:14 Total Protein 6.6 g/dL (6.3-8.2) 04/16/21 10:14 Albumin 3.9 g/dL (3.9-5) 04/16/21 10:14 Albumin/Globulin Ratio 1.4 % 04/16/21 10:14 Triglycerides 84 mg/dL (2-149) 04/16/21 10:14 Cholesterol 135 mg/dL (50-199) 04/16/21 10:14 LDL Cholesterol Direct 76 mg/dL (50-130) 04/16/21 10:14 HDL Cholesterol 58 mg/dL (40-59) 04/16/21 10:14 Cholesterol/HDL Ratio 2.32 % 04/16/21 10:14 TSH 0.906 mlU/mL (0.270-4.200) 04/16/21 10:14 Core Measure Documentation - Palliative Care Palliative Care/ Comfort Measures: Not Applicable - Core Measures Any of the following diagnoses?: none Exam - Constitutional Vitals: Temp Pulse Resp BP Pulse Ox 97.5 F L 80 16 112/78 97 04/21/21 08:15 04/21/21 08:15 04/21/21 08:15 04/21/21 08:15 04/21/21 08:15 General appearance: Present: no acute distress - EENT Eyes: Present: PERRL, EOM intact ENT: hearing intact, clear oral mucosa - Neck Neck: Present: supple, normal ROM - Respiratory Respiratory effort: normal Plan Activity: no restrictions Weight Bearing Status: Weight Bear as Tolerated Care Plan Goals: Maintain good and stable mental health Plan of Treatment: The patient should be compliant with medications, not to use drugs, and not to drink alcohol. The patient understands that if suicidal ideas, homicidal ideas or any endangering feeling arise, the patient should seek assistance including, but not limited to crisis hotline, and emergency room. Health Concerns: HTN, acute renal failure, hyperkalemia Assessment: Major Depressive Disorder Follow up with: PRIMARY CARE, [Primary Care Provider] - 7 Days Prescriptions: traZODone [Desyrel] 50 mg PO QHS #30 tablet Melatonin [Melatonin 5MG TAB] 5 mg PO QHS PRN #30 tablet PRN Reason: Sleep ARIPiprazole [Abilify TAB] 15 mg PO QDAY #[address] [Peter Camacho] 250 mg PO BID #30 tablet [place]-3 Fatty Acids/Fish Oil [Fish Oil] 2,000 mg PO BID #120 capsule FLUoxetine [PROzac] 40 mg PO QDAY #30 capsule
[2021-04-21] MEDS: DIVALPROEX DR 250 MG TAB PO SCH ×2 (09:36→21:20)
[2021-04-21] MEDS: FLUoxetine 20 MG CAP PO SCH (09:36)
[2021-04-21] MEDS: ARIPiprazole 15 MG TAB PO SCH (09:36)
[2021-04-21] MEDS: OMEGA-3 FATTY ACIDS/FISH OIL 1 GRAM CAP PO SCH ×2 (09:36→21:20)
[2021-04-21] MEDS: traZODone 50 MG TAB PO SCH (21:20)
[2021-04-21 23:47] VITALS: BP 108/81
== END 2021-04-22 06:35 | disposition home or self-care (01) | DRG 885 ==
LOC: UNDOADMIN 15:35 → 3A 15:35 → 5A 19:20
PROVIDERS: ADMIT Psychiatry & Neurology Psychiatry; ATTEND Psychiatry & Neurology Psychiatry
DX: F33.3 Major depressive disorder, recurrent, severe with psychotic symptoms (principal); E43 Unspecified severe protein-calorie malnutrition; Z68.1 Body mass index [BMI] 19.9 or less, adult; I10 Essential (primary) hypertension; N40.0 Benign prostatic hyperplasia without lower urinary tract symptoms; F17.200 Nicotine dependence, unspecified, uncomplicated; F12.90 Cannabis use, unspecified, uncomplicated; F14.90 Cocaine use, unspecified, uncomplicated; Z79.899 Other long term (current) drug therapy
CPT/HCPCS: 36415; 80048; 80053; 80061; 80307; 80320; 81001; 83036; 84443; 85025; G0378; G0480; U0003